=== PATIENT | male | born 1970 | race Caucasian/White ===

== ENCOUNTER 2016-08-04 15:22 | Inpatient (IN) | payer OTHER ==
[2016-08-04 16:58] VITALS: BMI 32.4
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
[2016-08-04] MEDS ORDERED: guaiFENesin/D-METHORPHAN HB 10 ML UNIT-DOSE CUPS PO PRN (17:45)
[2016-08-04] MEDS ORDERED: MAGNESIUM CITRATE 300 ML BOTTLE PO PRN (17:45)
[2016-08-04] MEDS ORDERED: MENTHOL/PHENOL 1 EACH UD MM PRN (17:45)
[2016-08-04] MEDS ORDERED: chlordiazePOXIDE HCL 25 MG CAPSULE PO PRN (17:45)
[2016-08-04] MEDS ORDERED: IBUPROFEN 400 MG TABLET (FP) PO PRN (17:45)
[2016-08-04] MEDS ORDERED: MAG HYDROX/AL HYDROX/SIMETH 30 ML UNIT-DOSE CUP PO PRN (17:45)
[2016-08-04] MEDS ORDERED: NICOTINE POLACRILEX 2 MG GUM BC PRN (17:45)
[2016-08-04] MEDS ORDERED: MAGNESIUM HYDROX 2400MG/30ML ORAL SUSPENSION 30 ML CUP PO PRN (17:45)
[2016-08-04] MEDS ORDERED: hydrOXYzine PAMOATE 50 MG CAPSULE (FP) PO PRN (17:45)
[2016-08-04] MEDS ORDERED: LOPERAMIDE HCL 2 MG CAPSULE PO PRN (17:45)
[2016-08-04] MEDS ORDERED: ACETAMINOPHEN 325 MG TABLET (FP) PO PRN (17:45)
[2016-08-04] MEDS ORDERED: P-EPHED 60MG/TRIPROLIDI 2.5MG TABLET PO PRN (17:45)
[2016-08-04] MEDS ORDERED: ONDANSETRON *ODT* 4 MG TABLET SL PRN (17:47)
[2016-08-04 22:47] LABS: URINE APPEARANCE CLEAR; URINE BILIRUBIN NEGATIVE (NEGATIVE); URINE BLOOD NEGATIVE (NEGATIVE); URINE COLOR YELLOW; URINE GLUCOSE (UA) NEGATIVE (NEGATIVE); URINE KETONE NEGATIVE (NEGATIVE); URINE LEUK ESTERASE NEGATIVE (NEGATIVE); URINE NITRITE NEGATIVE (NEGATIVE); URINE PROTEIN NEGATIVE (NEGATIVE); URINE UROBILINOGEN 2.0 E.U/dl E.U./dl (0.2-1.0)
[2016-08-04] MEDS: chlordiazePOXIDE HCL 25 MG CAPSULE PO SCH (22:59)
[2016-08-04] MEDS: THIAMINE HCL 100 MG TABLET (FP) PO SCH (22:59)
[2016-08-04] MEDS: diphenhydrAMINE HCL 50 MG CAPSULE PO PRN (23:00)
[2016-08-05] MEDS: chlordiazePOXIDE HCL 25 MG CAPSULE PO SCH ×4 (05:28→22:59)
[2016-08-05 10:09] LABS: MCH 29.3 pg (25.7-33.7); MCHC 32.7 g/dl (32.0-35.9); MEAN CELL VOLUME 89.5 fl (80-96); MEAN PLT VOLUME 11.2 fl (7.5-11.1); PLATELET COUNT 172 K/MM3 (134-434); WHITE BLOOD COUNT 7.4 K/mm3 (4.0-10.0)
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
[2016-08-05 10:23] LABS: ALBUMIN 3.3 g/dl (3.4-5.0); ANION GAP 7 (8-16); CALCIUM 8.8 mg/dL (8.5-10.1); CO2 30 mmol/L (21-32); CREATININE 0.8 mg/dL (0.7-1.3); GLUCOSE,RANDOM 113 mg/dL (74-106); SGOT/AST 13 U/L (15-37); SGPT/ALT 21 U/L (12-78)
[2016-08-05 10:25] LABS: ALK PHOS 62 U/L (45-117); BILIRUBIN,TOTAL 0.3 mg/dL (0.2-1.0); TOT PROT 6.4 g/dl (6.4-8.2)
[2016-08-05] MEDS: NICOTINE 14 MG/24 HOURS TOPICAL PATCH TD SCH (10:48)
[2016-08-05] MEDS: PRENATAL VITAMINS W/ FOLIC ACID TABLET (FP) PO SCH (10:48)
--- NOTE | 2016-08-05 11:08 | EKG ---
Test Reason : Blood Pressure : / mmHG Vent. Rate : 058 BPM Atrial Rate : 058 BPM P-R Int : 156 ms QRS Dur : 088 ms QT Int : 418 ms P-R-T Axes : 017 022 036 degrees QTc Int : 410 ms SINUS BRADYCARDIA OTHERWISE NORMAL ECG NO PREVIOUS ECGS AVAILABLE Confirmed by ROGELIO SINHA, EUGENE ([id number]) on 08/05/2016 11:07:41 AM Referred By: Jason Simon Confirmed By:EUGENE MERCADO MD
--- NOTE | 2016-08-05 11:35 | PN ---
[facility] CIWA - CIWA Score Nausea/Vomitin-No Nausea/No Vomiting Muscle Tremors: 4-Moderate,w/Arms Extend Anxiety: 4-Mod. Anxious/Guarded Agitation: 4-Moderately Restless Paroxysmal Sweats: 1-Minimal Palms Moist Orientation: 0-Oriented Tacttile Disturbances: 3-Moderate Itch/Numb/Burn Auditory Disturbances: 0-None Visual Disturbances: 0-None Headache: 0-None Present CIWA-Ar Total Score: 16 S Progress Note (SOAP) Subjective: ANXIETY,SWEATS, MUSCLE ACHES, TREMORS,IRRITABILITY, HOT/COLD CHILLS. Objective: 08/05/16 11:34 Vital Signs Temperature 97.3 F L 08/05/16 10:27 Pulse Rate 69 08/05/16 10:27 Respiratory Rate 18 08/05/16 10:27 Blood Pressure 111/81 08/05/16 10:27 O2 Sat by Pulse Oximetry (%) Laboratory Last Values WBC 7.4 K/mm3 (4.0-10.0) 08/05/16 07:14 RBC 5.07 M/mm3 (4.00-5.60) 08/05/16 07:14 Hgb 14.8 GM/dL (11.7-16.9) D 08/05/16 07:14 Hct 45.3 % (35.4-49) 08/05/16 07:14 MCV 89.5 fl (80-96) 08/05/16 07:14 MCHC 32.7 g/dl (32.0-35.9) 08/05/16 07:14 RDW 15.0 % (11.9-15.9) 08/05/16 07:14 Plt Count 172 K/MM3 (134-434) D 08/05/16 07:14 MPV 11.2 fl (7.5-11.1) H D 08/05/16 07:14 Sodium 144 mmol/L (136-145) 08/05/16 07:14 Potassium 4.1 mmol/L (3.5-5.1) 08/05/16 07:14 Chloride 107 mmol/L (98-107) 08/05/16 07:14 Carbon Dioxide 30 mmol/L (21-32) 08/05/16 07:14 Anion Gap 7 (8-16) L 08/05/16 07:14 BUN 9 mg/dL (7-18) 08/05/16 07:14 Creatinine 0.8 mg/dL (0.7-1.3) 08/05/16 07:14 Creat Clearance w eGFR > 60 (>60) 08/05/16 07:14 Random Glucose 113 mg/dL (74-106) H D 08/05/16 07:14 Calcium 8.8 mg/dL (8.5-10.1) 08/05/16 07:14 Total Bilirubin 0.3 mg/dL (0.2-1.0) 08/05/16 07:14 AST 13 U/L (15-37) L 08/05/16 07:14 ALT 21 U/L (12-78) D 08/05/16 07:14 Alkaline Phosphatase 62 U/L (45-117) 08/05/16 07:14 Total Protein 6.4 g/dl (6.4-8.2) 08/05/16 07:14 Albumin 3.3 g/dl (3.4-5.0) L 08/05/16 07:14 Urine Color Yellow 08/04/16 22:41 Urine Appearance Clear 08/04/16 22:41 Urine pH 6.0 (5.0-8.0) 08/04/16 22:41 Ur Specific [place] 1.031 (1.001-1.035) 08/04/16 22:41 Urine Protein Negative (NEGATIVE) 08/04/16 22:41 Urine Glucose (UA) Negative (NEGATIVE) 08/04/16 22:41 Urine Ketones Negative (NEGATIVE) 08/04/16 22:41 Urine Blood Negative (NEGATIVE) 08/04/16 22:41 Urine Nitrite Negative (NEGATIVE) 08/04/16 22:41 Urine Bilirubin Negative (NEGATIVE) 08/04/16 22:41 Urine Urobilinogen 2.0 e.u/dl E.U./dl (0.2-1.0) 08/04/16 22:41 Ur Leukocyte Esterase Negative (NEGATIVE) 08/04/16 22:41 Assessment: 08/05/16 11:34 WITHDRAWAL SX Plan: CONTINUE DETOX
[2016-08-05] MEDS: diphenhydrAMINE HCL 50 MG CAPSULE PO PRN (22:59)
[2016-08-05] MEDS: THIAMINE HCL 100 MG TABLET (FP) PO SCH (22:59)
[2016-08-06] MEDS: CYCLOBENZAPRINE HCL 10 MG TABLET (FP) PO PRN (05:26)
[2016-08-06] MEDS: chlordiazePOXIDE HCL 25 MG CAPSULE PO SCH ×3 (05:26→17:29)
[2016-08-06] MEDS: NICOTINE 14 MG/24 HOURS TOPICAL PATCH TD SCH (10:40)
[2016-08-06] MEDS: PRENATAL VITAMINS W/ FOLIC ACID TABLET (FP) PO SCH (10:40)
--- NOTE | 2016-08-06 11:38 | PN ---
[facility] CIWA - CIWA Score Nausea/Vomitin-No Nausea/No Vomiting Muscle Tremors: 4-Moderate,w/Arms Extend Anxiety: 4-Mod. Anxious/Guarded Agitation: 4-Moderately Restless Paroxysmal Sweats: 1-Minimal Palms Moist Orientation: 0-Oriented Tacttile Disturbances: 3-Moderate Itch/Numb/Burn Auditory Disturbances: 0-None Visual Disturbances: 0-None Headache: 0-None Present CIWA-Ar Total Score: 16 BHS Progress Note (SOAP) Subjective: ANXIETY,TREMORS, SWEATS, IRRITABILITY. Objective: 08/06/16 11:38 Vital Signs Temperature 96.4 F L 08/06/16 13:41 Pulse Rate 74 08/06/16 13:41 Respiratory Rate 20 08/06/16 13:41 Blood Pressure 123/75 08/06/16 13:41 O2 Sat by Pulse Oximetry (%) Laboratory Last Values WBC 7.4 K/mm3 (4.0-10.0) 08/05/16 07:14 RBC 5.07 M/mm3 (4.00-5.60) 08/05/16 07:14 Hgb 14.8 GM/dL (11.7-16.9) D 08/05/16 07:14 Hct 45.3 % (35.4-49) 08/05/16 07:14 MCV 89.5 fl (80-96) 08/05/16 07:14 MCHC 32.7 g/dl (32.0-35.9) 08/05/16 07:14 RDW 15.0 % (11.9-15.9) 08/05/16 07:14 Plt Count 172 K/MM3 (134-434) D 08/05/16 07:14 MPV 11.2 fl (7.5-11.1) H D 08/05/16 07:14 Sodium 144 mmol/L (136-145) 08/05/16 07:14 Potassium 4.1 mmol/L (3.5-5.1) 08/05/16 07:14 Chloride 107 mmol/L (98-107) 08/05/16 07:14 Carbon Dioxide 30 mmol/L (21-32) 08/05/16 07:14 Anion Gap 7 (8-16) L 08/05/16 07:14 BUN 9 mg/dL (7-18) 08/05/16 07:14 Creatinine 0.8 mg/dL (0.7-1.3) 08/05/16 07:14 Creat Clearance w eGFR > 60 (>60) 08/05/16 07:14 Random Glucose 113 mg/dL (74-106) H D 08/05/16 07:14 Calcium 8.8 mg/dL (8.5-10.1) 08/05/16 07:14 Total Bilirubin 0.3 mg/dL (0.2-1.0) 08/05/16 07:14 AST 13 U/L (15-37) L 08/05/16 07:14 ALT 21 U/L (12-78) D 08/05/16 07:14 Alkaline Phosphatase 62 U/L (45-117) 08/05/16 07:14 Total Protein 6.4 g/dl (6.4-8.2) 08/05/16 07:14 Albumin 3.3 g/dl (3.4-5.0) L 08/05/16 07:14 Urine Color Yellow 08/04/16 22:41 Urine Appearance Clear 08/04/16 22:41 Urine pH 6.0 (5.0-8.0) 08/04/16 22:41 Ur Specific [place] 1.031 (1.001-1.035) 08/04/16 22:41 Urine Protein Negative (NEGATIVE) 08/04/16 22:41 Urine Glucose (UA) Negative (NEGATIVE) 08/04/16 22:41 Urine Ketones Negative (NEGATIVE) 08/04/16 22:41 Urine Blood Negative (NEGATIVE) 08/04/16 22:41 Urine Nitrite Negative (NEGATIVE) 08/04/16 22:41 Urine Bilirubin Negative (NEGATIVE) 08/04/16 22:41 Urine Urobilinogen 2.0 e.u/dl E.U./dl (0.2-1.0) 08/04/16 22:41 Ur Leukocyte Esterase Negative (NEGATIVE) 08/04/16 22:41 RPR Titer Nonreactive (NONREACTIVE) 08/05/16 07:14 Assessment: 08/06/16 11:38 WITHDRAWAL SX Plan: CONTINUE DETOX
[2016-08-06] MEDS: THIAMINE HCL 100 MG TABLET (FP) PO SCH (22:50)
[2016-08-06] MEDS: diphenhydrAMINE HCL 50 MG CAPSULE PO PRN (22:51)
[2016-08-06] MEDS: chlordiazePOXIDE 5 MG CAPSULE PO SCH (22:51)
[2016-08-07] MEDS: chlordiazePOXIDE 5 MG CAPSULE PO SCH (05:18)
[2016-08-07] MEDS: CYCLOBENZAPRINE HCL 10 MG TABLET (FP) PO PRN (05:33)
[2016-08-07 06:46] VITALS: BP 117/79; PULSE 64; TEMP 96.5
--- NOTE | 2016-08-07 10:00 | DS ---
[facility] Detox Discharge Summary Admission Date: 08/04/16 Discharge Date: 08/07/16 - History Present History: Alcohol Dependence, Cannabis Dependence, Cocaine Dependence Pertinent Past History: Blind left eye - Physical Exam Results Vital Signs: Vital Signs Temperature 96.5 F L 08/07/16 06:46 Pulse Rate 64 08/07/16 06:46 Respiratory Rate 18 08/07/16 06:46 Blood Pressure 117/79 08/07/16 06:46 O2 Sat by Pulse Oximetry (%) Pertinent Admission Physical Exam Findings: Withdrawal sx. Laboratory Last Values WBC 7.4 K/mm3 (4.0-10.0) 08/05/16 07:14 RBC 5.07 M/mm3 (4.00-5.60) 08/05/16 07:14 Hgb 14.8 GM/dL (11.7-16.9) D 08/05/16 07:14 Hct 45.3 % (35.4-49) 08/05/16 07:14 MCV 89.5 fl (80-96) 08/05/16 07:14 MCHC 32.7 g/dl (32.0-35.9) 08/05/16 07:14 RDW 15.0 % (11.9-15.9) 08/05/16 07:14 Plt Count 172 K/MM3 (134-434) D 08/05/16 07:14 MPV 11.2 fl (7.5-11.1) H D 08/05/16 07:14 Sodium 144 mmol/L (136-145) 08/05/16 07:14 Potassium 4.1 mmol/L (3.5-5.1) 08/05/16 07:14 Chloride 107 mmol/L (98-107) 08/05/16 07:14 Carbon Dioxide 30 mmol/L (21-32) 08/05/16 07:14 Anion Gap 7 (8-16) L 08/05/16 07:14 BUN 9 mg/dL (7-18) 08/05/16 07:14 Creatinine 0.8 mg/dL (0.7-1.3) 08/05/16 07:14 Creat Clearance w eGFR > 60 (>60) 08/05/16 07:14 Random Glucose 113 mg/dL (74-106) H D 08/05/16 07:14 Calcium 8.8 mg/dL (8.5-10.1) 08/05/16 07:14 Total Bilirubin 0.3 mg/dL (0.2-1.0) 08/05/16 07:14 AST 13 U/L (15-37) L 08/05/16 07:14 ALT 21 U/L (12-78) D 08/05/16 07:14 Alkaline Phosphatase 62 U/L (45-117) 08/05/16 07:14 Total Protein 6.4 g/dl (6.4-8.2) 08/05/16 07:14 Albumin 3.3 g/dl (3.4-5.0) L 08/05/16 07:14 Urine Color Yellow 08/04/16 22:41 Urine Appearance Clear 08/04/16 22:41 Urine pH 6.0 (5.0-8.0) 08/04/16 22:41 Ur Specific [place] 1.031 (1.001-1.035) 08/04/16 22:41 Urine Protein Negative (NEGATIVE) 08/04/16 22:41 Urine Glucose (UA) Negative (NEGATIVE) 08/04/16 22:41 Urine Ketones Negative (NEGATIVE) 08/04/16 22:41 Urine Blood Negative (NEGATIVE) 08/04/16 22:41 Urine Nitrite Negative (NEGATIVE) 08/04/16 22:41 Urine Bilirubin Negative (NEGATIVE) 08/04/16 22:41 Urine Urobilinogen 2.0 e.u/dl E.U./dl (0.2-1.0) 08/04/16 22:41 Ur Leukocyte Esterase Negative (NEGATIVE) 08/04/16 22:41 RPR Titer Nonreactive (NONREACTIVE) 08/05/16 07:14 labs noted - Treatment Patient has Accepted a Rehab Referral to: [facility] meetings - Medication Discharge Medications: Ambulatory Orders Trazodone HCl [Desyrel -] 100 mg PO HS #30 tablet 01/02/15 - Diagnosis (1) Alcohol dependence with uncomplicated withdrawal Status: Acute (2) Cannabis dependence Status: Acute (3) Cocaine dependence Status: Acute (4) Nicotine dependence Status: Acute Qualifiers: Nicotine product type: cigarettes Substance use status: in withdrawal Qualified Code(s): F17.213 - Nicotine dependence, cigarettes, with withdrawal (5) Substance induced mood disorder Status: Acute - AMA Did Patient Leave Against Medical Advice: Yes
[2016-08-07] MEDS ORDERED: chlordiazePOXIDE HCL 10 MG CAPSULE PO SCH (23:00)
== END 2016-08-07 07:38 | disposition left against medical advice (07) | DRG 770 ==
LOC: YASAS 15:22 → Y3N 18:20
PROVIDERS: ADMIT Internal Medicine; ATTEND Internal Medicine
PROC: HZ2ZZZZ Detoxification Services for Substance Abuse Treatment (ICD-10-PCS; principal; 2016-08-07)
DX: F10.230 Alcohol dependence with withdrawal, uncomplicated (principal); F14.20 Cocaine dependence, uncomplicated; F12.20 Cannabis dependence, uncomplicated; F17.213 Nicotine dependence, cigarettes, with withdrawal; F19.24 Other psychoactive substance dependence with psychoactive substance-induced mood disorder; H54.42 Blindness, left eye, normal vision right eye; R11.10 Vomiting, unspecified
CPT/HCPCS: 36415; 80053; 81003; 85027; 86593; 93005; 93010

== ENCOUNTER 2017-02-03 11:25 | Inpatient (IN) | payer OTHER ==
[2017-02-03 12:56] VITALS: BMI 33.3
[2017-02-03] MEDS ORDERED: P-EPHED 60MG/TRIPROLIDI 2.5MG TABLET PO PRN (16:40)
[2017-02-03] MEDS ORDERED: NICOTINE POLACRILEX 2 MG GUM BC PRN (16:40)
[2017-02-03] MEDS ORDERED: MAGNESIUM HYDROX 2400MG/30ML ORAL SUSPENSION 30 ML CUP PO PRN (16:40)
[2017-02-03] MEDS ORDERED: diphenhydrAMINE HCL 50 MG CAPSULE PO PRN (16:40)
[2017-02-03] MEDS ORDERED: ACETAMINOPHEN 325 MG TABLET (FP) PO PRN (16:40)
[2017-02-03] MEDS ORDERED: guaiFENesin/D-METHORPHAN HB 10 ML UNIT-DOSE CUPS PO PRN (16:40)
[2017-02-03] MEDS ORDERED: IBUPROFEN 400 MG TABLET (FP) PO PRN (16:40)
[2017-02-03] MEDS ORDERED: LOPERAMIDE HCL 2 MG CAPSULE PO PRN (16:40)
[2017-02-03] MEDS ORDERED: MAG HYDROX/AL HYDROX/SIMETH 30 ML UNIT-DOSE CUP PO PRN (16:40)
[2017-02-03] MEDS ORDERED: MAGNESIUM CITRATE 300 ML BOTTLE PO PRN (16:40)
[2017-02-03] MEDS ORDERED: MENTHOL/PHENOL 1 EACH UD MM PRN (16:40)
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
[2017-02-03] MEDS ORDERED: diazePAM 5 MG TABLET PO ONE (17:00)
[2017-02-03] MEDS ORDERED: METHADONE HCL 10 MG TABLET (FOR DETOX USE ONLY) PO ONE ×2 (17:15→23:00)
[2017-02-03] MEDS: NICOTINE 7 MG/24 HOURS TOPICAL PATCH TD SCH (17:34)
[2017-02-03 21:23] LABS: URINE APPEARANCE CLEAR; URINE BILIRUBIN NEGATIVE (NEGATIVE); URINE BLOOD NEGATIVE (NEGATIVE); URINE COLOR YELLOW; URINE GLUCOSE (UA) NEGATIVE (NEGATIVE); URINE KETONE TRACE (NEGATIVE); URINE LEUK ESTERASE NEGATIVE (NEGATIVE); URINE NITRITE NEGATIVE (NEGATIVE); URINE PROTEIN NEGATIVE (NEGATIVE); URINE UROBILINOGEN NEGATIVE mg/dL (0.2-1.0)
[2017-02-03] MEDS: diazePAM 5 MG TABLET PO SCH (22:32)
[2017-02-03] MEDS: THIAMINE HCL 100 MG TABLET (FP) PO SCH (22:33)
[2017-02-04] MEDS: diazePAM 5 MG TABLET PO SCH ×3 (06:04→22:27)
[2017-02-04] MEDS ORDERED: METHADONE HCL 10 MG TABLET (FOR DETOX USE ONLY) PO SCH (10:00)
[2017-02-04] MEDS: PRENATAL VITAMINS W/ FOLIC ACID TABLET (FP) PO SCH (10:07)
[2017-02-04] MEDS: diazePAM 5 MG TABLET PO PRN ×2 (10:07→13:54)
[2017-02-04] MEDS: NICOTINE 7 MG/24 HOURS TOPICAL PATCH TD SCH (10:08)
[2017-02-04 10:20] LABS: MCH 29.8 pg (25.7-33.7); MCHC 32.8 g/dl (32.0-35.9); MEAN CELL VOLUME 90.9 fl (80-96); MEAN PLT VOLUME 9.8 fl (7.5-11.1); PLATELET COUNT 234 K/MM3 (134-434); WHITE BLOOD COUNT 7.4 K/mm3 (4.0-10.0)
[2017-02-04 10:46] LABS: ALK PHOS 68 U/L (45-117); ANION GAP 5 (8-16); BILIRUBIN,TOTAL 0.3 mg/dL (0.2-1.0); CALCIUM 8.6 mg/dL (8.5-10.1); CO2 29 mmol/L (21-32); CREATININE 0.7 mg/dL (0.7-1.3); GLUCOSE,RANDOM 91 mg/dL (74-106); SGOT/AST 18 U/L (15-37); SGPT/ALT 38 U/L (12-78)
[2017-02-04 11:28] LABS: HIV 1 & 2 AB NEGATIVE; HIV 1 AGp24 NEGATIVE
[2017-02-04] MEDS ORDERED: FLU VACCINE QUAD 60 MCG/0.5 ML (MDV 17-18) IM ONE (12:00)
--- NOTE | 2017-02-04 12:06 | PN ---
[facility] CIWA - CIWA Score Nausea/Vomitin-No Nausea/No Vomiting Muscle Tremors: 4-Moderate,w/Arms Extend Anxiety: 4-Mod. Anxious/Guarded Agitation: 4-Moderately Restless Paroxysmal Sweats: 3 Orientation: 0-Oriented Tacttile Disturbances: 0-None Auditory Disturbances: 0-None Visual Disturbances: 0-None Headache: 0-None Present CIWA-Ar Total Score: 15 S COWS - Scale Resting Pulse: 1= HI 81-100 Sweatin=Flushed/Facial Moisture Restless Observation: 1= Difficult to Sit Still Pupil Size: 0= Normal to Room Light Bone or Joint Aches: 2= Severe Diffuse Aches Runny Nose/ Eye Tearin= Nasal Congestion GI Upset > 30mins: 1= Stomach Cramp Tremor Observation of Outstretched Hands: 2= Slight Tremor Visible Yawning Observation: 2= >3x During Session Anxiety or Irritability: 2=Irritable/Anxious Goose Flesh Skin: 3=Piloerection COWS Score: 17 S Progress Note (SOAP) Subjective: irritable body aches chills sweats shakes interrupted sleep nausea Objective: 02/04/17 12:05 Vital Signs Temperature 98.1 F 02/04/17 09:50 Pulse Rate 84 02/04/17 09:50 Respiratory Rate 20 02/04/17 09:50 Blood Pressure 112/69 02/04/17 09:50 O2 Sat by Pulse Oximetry (%) Laboratory Tests 02/03/17 02/04/17 02/04/17 20:50 07:30 07:30 WBC 7.4 RBC 4.42 Hgb 13.2 D Hct 40.2 MCV 90.9 MCH 29.8 MCHC 32.8 RDW 15.0 Plt Count 234 D MPV 9.8 D Sodium Potassium Chloride Carbon Dioxide Anion Gap BUN Creatinine Creat Clearance w eGFR Random Glucose Calcium Total Bilirubin AST ALT Alkaline Phosphatase Total Protein Albumin Urine Color Yellow Urine Appearance Clear Urine pH 6.0 Ur Specific [place] 1.020 Urine Protein Negative Urine Glucose (UA) Negative Urine Ketones Trace H Urine Blood Negative Urine Nitrite Negative Urine Bilirubin Negative Urine Urobilinogen Negative RPR Titer HIV 1&2 Antibody Screen Negative HIV P24 Antigen Negative 02/04/17 02/04/17 07:30 07:30 WBC RBC Hgb Hct MCV MCH MCHC RDW Plt Count MPV Sodium 142 Potassium 4.5 Chloride 108 H Carbon Dioxide 29 Anion Gap 5 L BUN 14 D Creatinine 0.7 Creat Clearance w eGFR > 60 Random Glucose 91 Calcium 8.6 Total Bilirubin 0.3 AST 18 D ALT 38 D Alkaline Phosphatase 68 Total Protein 6.0 L Albumin 3.0 L Urine Color Urine Appearance Urine pH Ur Specific [place] Urine Protein Urine Glucose (UA) Urine Ketones Urine Blood Urine Nitrite Urine Bilirubin Urine Urobilinogen RPR Titer Nonreactive HIV 1&2 Antibody Screen HIV P24 Antigen aaox3 lying in bed no acute distress Assessment: 02/04/17 12:06 withdrawal sx Plan: continue detox increase fluids tigan po prn naproxyen 500mg bid
[2017-02-04] MEDS: hydrOXYzine PAMOATE 50 MG CAPSULE (FP) PO PRN (12:07)
--- NOTE | 2017-02-04 12:11 | CONSULT ---
[facility] Psychiatric Consult - Data Date of interview: 02/04/17 Admission source: [facility] Identifying data: This is 46 years old male with no psychiatric hospitalization history intoxicated with: Alcohol, Opioids, Xanax, Nicotine Substance Abuse History: - Smoking Cessation. Smoking history: Current every day smoker. Have you smoked in the past 12 months: Yes. Aproximately how many cigarettes per day: 2. Cigars Per Day: 10. Hx Chewing Tobacco Use: No. Initiated information on smoking cessation: Yes. 'Breaking Loose' booklet given : 02/03/17. - Substance & Tx. History. Hx Alcohol Use: Yes. Hx Substance Use : Yes. Substance Use Type: Alcohol, Heroin, Tranquilizers. Hx Substance Use Treatment: Yes (detox & rehab last July 2016). - Substances Abused. Heroin. Route: Injection. Frequency: Daily. Amount used: 7 bags. Age of first use: 29. Date of Last Use: 02/02/17. Klonopin. Route: Oral. Frequency: Daily. Amount used: 6-8 mg. Age of first use: 39. Date of Last Use : 02/02/17. Alcohol-vodka. Route: Oral. Frequency: 3-6 times per week. Amount used: 3 pts. Age of first use: 11. Date of Last Use: 02/02/17 Medical History: Syncope history, Seizure history, MMTO, Left eye blindness Psychiatric History: Patioent reprots history of depression and anxiety, reports taking prior to admission: Trazodone 100mg po qhs Physical/Sexual Abuse/Trauma History: Denies Additional Comment: Trazodone 100mg po qhs Mental Status Exam - Mental Status Exam Alert and Oriented to: Person Cognitive Function: Fair Patient Appearance: Unkempt Mood: Sad Patient Behavior: Sedated Speech Pattern: Delayed Voice Loudness: Mildly Soft/Quiet Thought Process: Circumstantial Thought Disorder: Being Controlled Hallucinations: Denies Suicidal Ideation: Denies Homicidal Ideation: Denies Insight/Judgement: Fair Sleep: Difficulty falling asleep Appetite: Fair Muscle strength/Tone: Mild Hypotonicity Gait/Station: Shuffling Additional Comments: Trazodone 100mg po qhs Psychiatric Findings - Problem List ([place] 1, 2,3) (1) Alcohol dependence with uncomplicated withdrawal Current Visit: Yes Status: Chronic (2) Opioid dependence with withdrawal Current Visit: Yes Status: Chronic (3) Sedative, hypnotic or anxiolytic dependence with withdrawal, uncomplicated Current Visit: Yes Status: Chronic (4) Cannabis dependence Current Visit: No Status: Chronic (5) Cocaine dependence Current Visit: No Status: Chronic (6) Nicotine dependence Current Visit: No Status: Chronic Qualifiers: Nicotine product type: cigarettes Substance use status: uncomplicated Qualified Code(s): F17.210 - Nicotine dependence, cigarettes, uncomplicated (7) Drug-induced mood disorder Current Visit: Yes Status: Acute - Initial Treatment Plan Initial Treatment Plan: Trazodone 100mg po qhs
[2017-02-04] MEDS ORDERED: NAPROXEN 500 MG TABLET (FP) PO ONE (12:18)
--- NOTE | 2017-02-04 16:01 | EKG ---
Test Reason : Blood Pressure : / mmHG Vent. Rate : 079 BPM Atrial Rate : 079 BPM P-R Int : 138 ms QRS Dur : 090 ms QT Int : 394 ms P-R-T Axes : 013 015 041 degrees QTc Int : 451 ms POOR DATA QUALITY, INTERPRETATION MAY BE ADVERSELY AFFECTED NORMAL SINUS RHYTHM NORMAL ECG WHEN COMPARED WITH ECG OF 04-AUG-2016 18:14, NO SIGNIFICANT CHANGE WAS FOUND Confirmed by GARTH SINHA, YURIY ([id number]) on 02/04/2017 4:01:18 PM Referred By: Jason Simon Confirmed By:YURIY LIANG MD
[2017-02-04] MEDS: NAPROXEN 500 MG TABLET (FP) PO SCH (22:27)
[2017-02-04] MEDS: traZODone HCL 100 MG TABLET (FP) PO SCH (22:27)
[2017-02-04] MEDS: THIAMINE HCL 100 MG TABLET (FP) PO SCH (22:28)
--- NOTE | 2017-02-05 10:02 | PN ---
S CIWA - CIWA Score Nausea/Vomitin Muscle Tremors: 4-Moderate,w/Arms Extend Anxiety: 4-Mod. Anxious/Guarded Agitation: 4-Moderately Restless Orientation: 0-Oriented Tacttile Disturbances: 0-None Auditory Disturbances: 0-None Visual Disturbances: 0-None Headache: 0-None Present S COWS - Scale Resting Pulse: 0= OR 80 or Below Sweatin= Chills/Flushing Restless Observation: 1= Difficult to Sit Still Pupil Size: 1= Pupils >than Normal Bone or Joint Aches: 1= Mild Discomfort Runny Nose/ Eye Tearin= Nasal Congestion GI Upset > 30mins: 2= Nausea/Diarrhea Tremor Observation of Outstretched Hands: 2= Slight Tremor Visible Yawning Observation: 1= 1-2x During Session Anxiety or Irritability: 2=Irritable/Anxious Goose Flesh Skin: 3=Piloerection COWS Score: 15 S Progress Note (SOAP) Subjective: nausea, sweats, interrupted sleep, anxiety, tremors Objective: 02/05/17 10:01 Vital Signs - 24 hr 02/04/17 02/04/17 02/04/17 13:37 17:08 21:34 Temperature 98.1 F 97.9 F 97.9 F Pulse Rate 69 63 62 Respiratory 18 20 18 Rate Blood Pressure 113/67 92/62 114/75 02/05/17 02/05/17 02/05/17 00:30 03:30 07:11 Temperature 97.2 F L Pulse Rate 57 L Respiratory 18 18 18 Rate Blood Pressure 103/64 Laboratory Tests 02/03/17 02/04/17 02/04/17 20:50 07:30 07:30 WBC 7.4 RBC 4.42 Hgb 13.2 D Hct 40.2 MCV 90.9 MCH 29.8 MCHC 32.8 RDW 15.0 Plt Count 234 D MPV 9.8 D Sodium Potassium Chloride Carbon Dioxide Anion Gap BUN Creatinine Creat Clearance w eGFR Random Glucose Calcium Total Bilirubin AST ALT Alkaline Phosphatase Total Protein Albumin Urine Color Yellow Urine Appearance Clear Urine pH 6.0 Ur Specific [place] 1.020 Urine Protein Negative Urine Glucose (UA) Negative Urine Ketones Trace H Urine Blood Negative Urine Nitrite Negative Urine Bilirubin Negative Urine Urobilinogen Negative RPR Titer HIV 1&2 Antibody Screen Negative HIV P24 Antigen Negative 02/04/17 02/04/17 07:30 07:30 WBC RBC Hgb Hct MCV MCH MCHC RDW Plt Count MPV Sodium 142 Potassium 4.5 Chloride 108 H Carbon Dioxide 29 Anion Gap 5 L BUN 14 D Creatinine 0.7 Creat Clearance w eGFR > 60 Random Glucose 91 Calcium 8.6 Total Bilirubin 0.3 AST 18 D ALT 38 D Alkaline Phosphatase 68 Total Protein 6.0 L Albumin 3.0 L Urine Color Urine Appearance Urine pH Ur Specific [place] Urine Protein Urine Glucose (UA) Urine Ketones Urine Blood Urine Nitrite Urine Bilirubin Urine Urobilinogen RPR Titer Nonreactive HIV 1&2 Antibody Screen HIV P24 Antigen Assessment: 02/05/17 10:02 withdrawal sx Plan: cont detox, fluids, encrouage ambualtion
[2017-02-05] MEDS: diazePAM 5 MG TABLET PO SCH ×2 (10:15→22:11)
[2017-02-05] MEDS: PANTOPRAZOLE 40 MG TABLET (FP) PO SCH (10:15)
[2017-02-05] MEDS: PRENATAL VITAMINS W/ FOLIC ACID TABLET (FP) PO SCH (10:15)
[2017-02-05] MEDS: cloNIDine HCL 0.1 MG TABLET PO SCH ×2 (10:15→22:11)
[2017-02-05] MEDS: NICOTINE 7 MG/24 HOURS TOPICAL PATCH TD SCH (10:15)
[2017-02-05] MEDS: NAPROXEN 500 MG TABLET (FP) PO SCH ×2 (10:15→22:11)
[2017-02-05] MEDS: hydrOXYzine PAMOATE 50 MG CAPSULE (FP) PO PRN (10:15)
[2017-02-05] MEDS: METHADONE HCL 5 MG TABLET (FOR DETOX USE ONLY) PO SCH (10:15)
[2017-02-05] MEDS: GABAPENTIN 100 MG CAPSULE (FP) PO SCH ×2 (14:04→22:11)
[2017-02-05] MEDS: THIAMINE HCL 100 MG TABLET (FP) PO SCH (22:11)
[2017-02-05] MEDS: traZODone HCL 100 MG TABLET (FP) PO SCH (22:11)
[2017-02-06] MEDS: diazePAM 5 MG TABLET PO PRN ×3 (05:38→14:27)
[2017-02-06] MEDS: GABAPENTIN 100 MG CAPSULE (FP) PO SCH ×3 (05:38→22:03)
[2017-02-06] MEDS: PRENATAL VITAMINS W/ FOLIC ACID TABLET (FP) PO SCH (10:14)
[2017-02-06] MEDS: PANTOPRAZOLE 40 MG TABLET (FP) PO SCH (10:14)
[2017-02-06] MEDS: NAPROXEN 500 MG TABLET (FP) PO SCH ×2 (10:14→22:03)
[2017-02-06] MEDS: diazePAM 5 MG TABLET PO SCH ×2 (10:14→22:02)
[2017-02-06] MEDS: cloNIDine HCL 0.1 MG TABLET PO SCH ×2 (10:14→22:03)
[2017-02-06] MEDS: METHADONE HCL 5 MG TABLET (FOR DETOX USE ONLY) PO SCH (10:15)
[2017-02-06] MEDS: NICOTINE 7 MG/24 HOURS TOPICAL PATCH TD SCH (10:16)
--- NOTE | 2017-02-06 13:41 | PN ---
[facility] Progress Note (SOAP) Subjective: alert,irritable,anxious,interrupted sleep,treor,pain in the body and back, interrupted sleep Objective: 02/06/17 13:40 Vital Signs Temperature 97.5 F L 02/06/17 11:06 Pulse Rate 71 02/06/17 11:06 Respiratory Rate 19 02/06/17 11:06 Blood Pressure 116/76 02/06/17 11:06 O2 Sat by Pulse Oximetry (%) Assessment: 02/06/17 13:40 withdrawal symptom Plan: continue detox
[2017-02-06] MEDS: THIAMINE HCL 100 MG TABLET (FP) PO SCH (22:02)
[2017-02-06] MEDS: ZOLPIDEM TARTRATE 10 MG TABLET (PARK CARE ONLY) PO PRN (22:02)
[2017-02-06] MEDS: traZODone HCL 100 MG TABLET (FP) PO SCH (22:03)
[2017-02-07] MEDS: GABAPENTIN 100 MG CAPSULE (FP) PO SCH ×3 (06:26→22:01)
[2017-02-07] MEDS ORDERED: diazePAM 5 MG TABLET PO SCH (10:00)
[2017-02-07] MEDS ORDERED: METHADONE HCL 10 MG TABLET (FOR DETOX USE ONLY) PO SCH (10:00)
--- NOTE | 2017-02-07 10:04 | PN ---
S Progress Note (SOAP) Subjective: ALERT,IRRITABLE,ANXIOUS,INTERRUPTED SLEEP, Objective: 02/07/17 10:03 Vital Signs Temperature 98.2 F 02/07/17 09:57 Pulse Rate 71 02/07/17 09:57 Respiratory Rate 16 02/07/17 09:57 Blood Pressure 124/77 02/07/17 09:57 O2 Sat by Pulse Oximetry (%) Assessment: 02/07/17 10:04 WITHDRAWAL SYMPTOM Plan: CONTINUE DETOX,DISCHARGE IN AM
[2017-02-07] MEDS: PANTOPRAZOLE 40 MG TABLET (FP) PO SCH (10:45)
[2017-02-07] MEDS: PRENATAL VITAMINS W/ FOLIC ACID TABLET (FP) PO SCH (10:45)
[2017-02-07] MEDS: cloNIDine HCL 0.1 MG TABLET PO SCH ×2 (10:45→22:00)
[2017-02-07] MEDS: NICOTINE 7 MG/24 HOURS TOPICAL PATCH TD SCH (10:46)
[2017-02-07] MEDS: NAPROXEN 500 MG TABLET (FP) PO SCH ×2 (10:46→22:00)
[2017-02-07] MEDS: ZOLPIDEM TARTRATE 10 MG TABLET (PARK CARE ONLY) PO PRN (22:00)
[2017-02-07] MEDS: traZODone HCL 100 MG TABLET (FP) PO SCH (22:00)
[2017-02-07] MEDS: THIAMINE HCL 100 MG TABLET (FP) PO SCH (22:01)
[2017-02-08] MEDS: GABAPENTIN 100 MG CAPSULE (FP) PO SCH (05:29)
[2017-02-08] MEDS ORDERED: METHADONE HCL 5 MG TABLET (FOR DETOX USE ONLY) PO SCH (06:00)
[2017-02-08 06:02] VITALS: BP 134/83; PULSE 51; TEMP 97.5
--- NOTE | 2017-02-08 08:56 | DS ---
[facility] Detox Discharge Summary Admission Date: 02/03/17 Discharge Date: 02/08/17 - History Present History: Alcohol Dependence, Cannabis Dependence, Cocaine Dependence, Opioid Dependence, Sedative Dependence - Physical Exam Results Vital Signs: Vital Signs Temperature 97.5 F L 02/08/17 06:02 Pulse Rate 51 L 02/08/17 06:02 Respiratory Rate 18 02/08/17 06:02 Blood Pressure 134/83 02/08/17 06:02 O2 Sat by Pulse Oximetry (%) - Treatment Hospital Course: Detox Protocol Followed, Detoxed Safely, Responded well, Discharged Condition Good, Rehab Referral Accepted - Medication Discharge Medications: Ambulatory Orders Trazodone HCl [Desyrel -] 100 mg PO HS #30 tablet 01/02/15 Trazodone HCl [Desyrel -] 100 mg PO HS #30 tablet 02/04/17 - Diagnosis (1) Alcohol dependence with uncomplicated withdrawal Current Visit: Yes Status: Chronic (2) Opioid dependence with withdrawal Current Visit: Yes Status: Chronic (3) Sedative, hypnotic or anxiolytic dependence with withdrawal, uncomplicated Current Visit: Yes Status: Chronic (4) Nicotine dependence Current Visit: No Status: Chronic Qualifiers: Nicotine product type: cigarettes Substance use status: uncomplicated Qualified Code(s): F17.210 - Nicotine dependence, cigarettes, uncomplicated - AMA Did Patient Leave Against Medical Advice: No
[2017-02-08] MEDS: PRENATAL VITAMINS W/ FOLIC ACID TABLET (FP) PO SCH (09:30)
[2017-02-08] MEDS: cloNIDine HCL 0.1 MG TABLET PO SCH (09:30)
[2017-02-08] MEDS: NICOTINE 7 MG/24 HOURS TOPICAL PATCH TD SCH (09:30)
[2017-02-08] MEDS: PANTOPRAZOLE 40 MG TABLET (FP) PO SCH (09:30)
[2017-02-08] MEDS: NAPROXEN 500 MG TABLET (FP) PO SCH (09:30)
== END 2017-02-08 09:35 | disposition home or self-care (01) | DRG 773 ==
LOC: YASAS 11:25 → Y6N 16:32
PROVIDERS: ADMIT Internal Medicine; ATTEND Internal Medicine
PROC: HZ2ZZZZ Detoxification Services for Substance Abuse Treatment (ICD-10-PCS; principal; 2017-02-03)
DX: F11.23 Opioid dependence with withdrawal (principal); F13.230 Sedative, hypnotic or anxiolytic dependence with withdrawal, uncomplicated; F10.230 Alcohol dependence with withdrawal, uncomplicated; F14.20 Cocaine dependence, uncomplicated; F17.210 Nicotine dependence, cigarettes, uncomplicated; F19.24 Other psychoactive substance dependence with psychoactive substance-induced mood disorder; H54.42 Blindness, left eye, normal vision right eye; Z86.69 Personal history of other diseases of the nervous system and sense organs; Z86.79 Personal history of other diseases of the circulatory system
CPT/HCPCS: 36415; 80053; 81003; 85027; 86593; 87389; 90688; 93005; 93010; G0008

== ENCOUNTER 2019-02-27 14:54 | Inpatient (IN) | payer OTHER ==
[2019-02-27 15:33] VITALS: BMI 38.2
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
--- NOTE | 2019-02-27 17:50 | PN ---
Teaching Attending Note Name of Resident: Reid Patterson ATTENDING PHYSICIAN STATEMENT I saw and evaluated the patient. I reviewed the resident's note and discussed the case with the resident. I agree with the resident's findings and plan as documented. SUBJECTIVE: 48 yo with OUD- on suboxone, here for alcohol use- pt states has not used since yesterday. Is in withdrawal. Also on K2. OBJECTIVE: Vital Signs - 24 hr 02/27/19 15:28 Temperature 98.1 F Pulse Rate 58 L Respiratory 16 Rate Blood Pressure 100/56 L withdrawal SX ASSESSMENT AND PLAN: Alcohol use disorder- librium detox protocol OUD- Suboxone- pt is currently getting this 4mg qd
[2019-02-27] MEDS ORDERED: IBUPROFEN 400 MG TABLET (FP) PO PRN (17:52)
[2019-02-27] MEDS ORDERED: BISMUTH SUBSALICYLATE 524 MG/30 ML UD PO PRN (17:52)
[2019-02-27] MEDS ORDERED: MAG HYDROX/AL HYDROX/SIMETH 30 ML UNIT-DOSE CUP PO PRN (17:52)
[2019-02-27] MEDS ORDERED: MELATONIN 5 MG TABLETS PO PRN (17:52)
[2019-02-27] MEDS ORDERED: MAGNESIUM HYDROX 2400MG/30ML ORAL SUSPENSION 30 ML CUP PO PRN (17:52)
[2019-02-27] MEDS ORDERED: MENTHOL/PHENOL 1 EACH UD MM PRN (17:52)
[2019-02-27] MEDS ORDERED: hydrOXYzine PAMOATE 25 MG CAPSULE (FP) PO PRN (17:52)
[2019-02-27] MEDS ORDERED: MAGNESIUM CITRATE 300 ML BOTTLE PO PRN (17:52)
[2019-02-27] MEDS ORDERED: ACETAMINOPHEN 325 MG TABLET (FP) PO PRN ×2 (17:52)
[2019-02-27] MEDS ORDERED: ALBUTEROL SO4 8 GM HFA INHALER IH PRN (18:01)
[2019-02-27] MEDS: chlordiazePOXIDE HCL 25 MG CAPSULE PO PRN (18:35)
[2019-02-27] MEDS: METHOCARBAMOL 500 MG TABLET PO PRN (18:39)
[2019-02-27] MEDS: chlordiazePOXIDE HCL 25 MG CAPSULE PO SCH (22:09)
[2019-02-27] MEDS: THIAMINE HCL 100 MG TABLET (FP) PO SCH (22:10)
[2019-02-28] MEDS: chlordiazePOXIDE HCL 25 MG CAPSULE PO SCH ×4 (05:05→22:08)
[2019-02-28 09:37] LABS: HEMATOCRIT 45.2 % (35.4-49); HEMOGLOBIN 14.9 GM/dL (11.7-16.9); MCH 29.4 pg (25.7-33.7); MCHC 32.8 g/dl (32.0-35.9); MEAN CELL VOLUME 89.5 fl (80-96); MEAN PLT VOLUME 10.1 fl (7.5-11.1); PLATELET COUNT 276 K/MM3 (134-434); RBC 5.05 M/mm3 (4.00-5.60); RDW 15.5 % (11.9-15.9); WHITE BLOOD COUNT 7.3 K/mm3 (4.0-10.0)
[2019-02-28 09:53] LABS: ALBUMIN 3.8 g/dl (3.4-5.0); BILIRUBIN,TOTAL 0.6 mg/dL (0.2-1); BLOOD UREA NITROGEN 12.7 mg/dL (7-18); CALCIUM 8.8 mg/dL (8.5-10.1); CREATININE 0.8 mg/dL (0.55-1.3); POTASSIUM 4.4 mmol/L (3.5-5.1); TOT PROT 7.4 g/dl (6.4-8.2)
[2019-02-28] MEDS: BUPRENORPHINE/NALOXONE 4 MG/1 MG FILM PACKET SL SCH (10:13)
[2019-02-28] MEDS: PRENATAL VITAMINS W/ FOLIC ACID TABLET (FP) PO SCH (10:15)
[2019-02-28] MEDS: NICOTINE 14 MG/24 HOURS TOPICAL PATCH TD SCH (10:15)
[2019-02-28] MEDS ORDERED: BUPRENORPHINE/NALOXONE 2 MG/0.5 MG FILM PACKET SL SCH (11:00)
--- NOTE | 2019-02-28 11:04 | PN ---
[facility] CIWA - CIWA Score Nausea/Vomitin Muscle Tremors: 2 Anxiety: 2 Agitation: 3 Paroxysmal Sweats: 2 Orientation: 0-Oriented Tacttile Disturbances: 2-Mild Itch/Numbness/Burn Auditory Disturbances: 0-None Visual Disturbances: 0-None Headache: 0-None Present CIWA-Ar Total Score: 13 B[facility] Progress Note (SOAP) Subjective: interrupted sleep, sweats, shakes , irritated about being frequently awakened. Objective: 02/28/19 11:02 Vital Signs Temperature 97.9 F 02/27/19 21:18 Pulse Rate 57 L 02/28/19 09:12 Respiratory Rate 16 02/28/19 09:12 Blood Pressure 119/76 02/28/19 09:12 O2 Sat by Pulse Oximetry (%) Laboratory Tests 02/28/19 02/28/19 07:50 07:50 WBC 7.3 RBC 5.05 Hgb 14.9 Hct 45.2 MCV 89.5 MCH 29.4 MCHC 32.8 RDW 15.5 Plt Count 276 MPV 10.1 Sodium 139 Potassium 4.4 Chloride 106 Carbon Dioxide 27 Anion Gap 7 L BUN 12.7 Creatinine 0.8 Est GFR (CKD-EPI)AfAm 121.57 Est GFR (CKD-EPI)NonAf 104.89 Random Glucose 95 Calcium 8.8 Total Bilirubin 0.6 AST 14 L ALT 27 Alkaline Phosphatase 86 Total Protein 7.4 Albumin 3.8 pt lying on stomach in bed in nad but irritable. Assessment: 02/28/19 11:04 withdrawal sx's MAT with Buprenorphine 02/28/19 11:05 Plan: cont. detox increase fluids
[2019-02-28] MEDS: chlordiazePOXIDE HCL 25 MG CAPSULE PO PRN (11:45)
[2019-02-28] MEDS: METHOCARBAMOL 500 MG TABLET PO PRN ×2 (11:46→22:10)
[2019-02-28] MEDS: THIAMINE HCL 100 MG TABLET (FP) PO SCH (22:08)
[2019-03-01] MEDS: chlordiazePOXIDE HCL 25 MG CAPSULE PO SCH ×4 (06:13→22:05)
[2019-03-01] MEDS: BUPRENORPHINE/NALOXONE 4 MG/1 MG FILM PACKET SL SCH (10:43)
[2019-03-01] MEDS: PRENATAL VITAMINS W/ FOLIC ACID TABLET (FP) PO SCH (10:43)
[2019-03-01] MEDS: NICOTINE 14 MG/24 HOURS TOPICAL PATCH TD SCH (10:44)
--- NOTE | 2019-03-01 12:27 | PN ---
S CIWA - CIWA Score Nausea/Vomitin Muscle Tremors: 2 Anxiety: 2 Agitation: 2 Paroxysmal Sweats: No Perspiration Orientation: 0-Oriented Tacttile Disturbances: 1-Very Mild Itch/Numbness Auditory Disturbances: 0-None Visual Disturbances: 0-None Headache: 1-Very Mild CIWA-Ar Total Score: 10 BHS Progress Note (SOAP) Subjective: c/o of chills, sweats, body aches, irritable Objective: 03/01/19 12:25 Vital Signs Temperature 97.9 F 03/01/19 09:48 Pulse Rate 76 03/01/19 09:48 Respiratory Rate 18 03/01/19 09:48 Blood Pressure 121/90 03/01/19 09:48 O2 Sat by Pulse Oximetry (%) Laboratory Last Values WBC 7.3 K/mm3 (4.0-10.0) 02/28/19 07:50 RBC 5.05 M/mm3 (4.00-5.60) 02/28/19 07:50 Hgb 14.9 GM/dL (11.7-16.9) 02/28/19 07:50 Hct 45.2 % (35.4-49) 02/28/19 07:50 MCV 89.5 fl (80-96) 02/28/19 07:50 MCH 29.4 pg (25.7-33.7) 02/28/19 07:50 MCHC 32.8 g/dl (32.0-35.9) 02/28/19 07:50 RDW 15.5 % (11.9-15.9) 02/28/19 07:50 Plt Count 276 K/MM3 (134-434) 02/28/19 07:50 MPV 10.1 fl (7.5-11.1) 02/28/19 07:50 Sodium 139 mmol/L (136-145) 02/28/19 07:50 Potassium 4.4 mmol/L (3.5-5.1) 02/28/19 07:50 Chloride 106 mmol/L (98-107) 02/28/19 07:50 Carbon Dioxide 27 mmol/L (21-32) 02/28/19 07:50 Anion Gap 7 MMOL/L (8-16) L 02/28/19 07:50 BUN 12.7 mg/dL (7-18) 02/28/19 07:50 Creatinine 0.8 mg/dL (0.55-1.3) 02/28/19 07:50 Est GFR (CKD-EPI)AfAm 121.57 02/28/19 07:50 Est GFR (CKD-EPI)NonAf 104.89 02/28/19 07:50 Random Glucose 95 mg/dL (74-106) 02/28/19 07:50 Calcium 8.8 mg/dL (8.5-10.1) 02/28/19 07:50 Total Bilirubin 0.6 mg/dL (0.2-1) 02/28/19 07:50 AST 14 U/L (15-37) L 02/28/19 07:50 ALT 27 U/L (13-61) 02/28/19 07:50 Alkaline Phosphatase 86 U/L (45-117) 02/28/19 07:50 Total Protein 7.4 g/dl (6.4-8.2) 02/28/19 07:50 Albumin 3.8 g/dl (3.4-5.0) 02/28/19 07:50 RPR Titer Nonreactive (NONREACTIVE) 02/28/19 07:50 labs reviewed Assessment: 03/01/19 12:25 Aox3 no acute distress, irritable no adventitious breath sounds full ROM ambulating in the unit withdrawal sx Plan: increase fluids continue detox continue to monitor
[2019-03-01] MEDS: METHOCARBAMOL 500 MG TABLET PO PRN ×2 (13:19→18:41)
[2019-03-01] MEDS: chlordiazePOXIDE HCL 25 MG CAPSULE PO PRN (13:19)
[2019-03-01] MEDS: THIAMINE HCL 100 MG TABLET (FP) PO SCH (21:19)
[2019-03-02] MEDS ORDERED: chlordiazePOXIDE HCL 10 MG CAPSULE PO PRN
[2019-03-02] MEDS: chlordiazePOXIDE HCL 10 MG CAPSULE PO SCH ×4 (07:37→23:50)
--- NOTE | 2019-03-02 09:39 | PN ---
S CIWA - CIWA Score Nausea/Vomitin Muscle Tremors: 2 Anxiety: 2 Agitation: 0-Normal Activity Paroxysmal Sweats: 2 Orientation: 0-Oriented Tacttile Disturbances: 1-Very Mild Itch/Numbness Auditory Disturbances: 0-None Visual Disturbances: 2-Mild Sensitivity Headache: 0-None Present CIWA-Ar Total Score: 12 S Progress Note (SOAP) Subjective: c/o of nausea, interrupted sleep, body aches, chills Objective: 03/02/19 09:38 Vital Signs Temperature 99.1 F 03/01/19 20:42 Pulse Rate 63 03/01/19 20:42 Respiratory Rate 18 03/02/19 03:30 Blood Pressure 112/68 03/01/19 20:42 O2 Sat by Pulse Oximetry (%) Laboratory Last Values WBC 7.3 K/mm3 (4.0-10.0) 02/28/19 07:50 RBC 5.05 M/mm3 (4.00-5.60) 02/28/19 07:50 Hgb 14.9 GM/dL (11.7-16.9) 02/28/19 07:50 Hct 45.2 % (35.4-49) 02/28/19 07:50 MCV 89.5 fl (80-96) 02/28/19 07:50 MCH 29.4 pg (25.7-33.7) 02/28/19 07:50 MCHC 32.8 g/dl (32.0-35.9) 02/28/19 07:50 RDW 15.5 % (11.9-15.9) 02/28/19 07:50 Plt Count 276 K/MM3 (134-434) 02/28/19 07:50 MPV 10.1 fl (7.5-11.1) 02/28/19 07:50 Sodium 139 mmol/L (136-145) 02/28/19 07:50 Potassium 4.4 mmol/L (3.5-5.1) 02/28/19 07:50 Chloride 106 mmol/L (98-107) 02/28/19 07:50 Carbon Dioxide 27 mmol/L (21-32) 02/28/19 07:50 Anion Gap 7 MMOL/L (8-16) L 02/28/19 07:50 BUN 12.7 mg/dL (7-18) 02/28/19 07:50 Creatinine 0.8 mg/dL (0.55-1.3) 02/28/19 07:50 Est GFR (CKD-EPI)AfAm 121.57 02/28/19 07:50 Est GFR (CKD-EPI)NonAf 104.89 02/28/19 07:50 Random Glucose 95 mg/dL (74-106) 02/28/19 07:50 Calcium 8.8 mg/dL (8.5-10.1) 02/28/19 07:50 Total Bilirubin 0.6 mg/dL (0.2-1) 02/28/19 07:50 AST 14 U/L (15-37) L 02/28/19 07:50 ALT 27 U/L (13-61) 02/28/19 07:50 Alkaline Phosphatase 86 U/L (45-117) 02/28/19 07:50 Total Protein 7.4 g/dl (6.4-8.2) 02/28/19 07:50 Albumin 3.8 g/dl (3.4-5.0) 02/28/19 07:50 RPR Titer Nonreactive (NONREACTIVE) 02/28/19 07:50 Assessment: 03/02/19 09:38 Aox3 no acute distress EENT WNL Patient resting comfortably in bed and active participant during assessment Plan: increase fluids continue detox continue to monitor
[2019-03-02] MEDS: PRENATAL VITAMINS W/ FOLIC ACID TABLET (FP) PO SCH (10:21)
[2019-03-02] MEDS: BUPRENORPHINE/NALOXONE 4 MG/1 MG FILM PACKET SL SCH (10:22)
[2019-03-02] MEDS: NICOTINE 14 MG/24 HOURS TOPICAL PATCH TD SCH (10:22)
[2019-03-02] MEDS: METHOCARBAMOL 500 MG TABLET PO PRN (18:03)
[2019-03-02] MEDS: THIAMINE HCL 100 MG TABLET (FP) PO SCH (23:50)
[2019-03-03] MEDS ORDERED: chlordiazePOXIDE HCL 10 MG CAPSULE PO SCH (05:00)
--- NOTE | 2019-03-03 09:55 | DS ---
[facility] Detox Discharge Summary Admission Date: 02/27/19 Discharge Date: 03/03/19 - History Present History: Cannabis Dependence, Cocaine Dependence, Sedative Dependence - Physical Exam Results Vital Signs: Vital Signs Temperature 98.1 F 03/03/19 09:13 Pulse Rate 87 03/03/19 09:13 Respiratory Rate 20 03/03/19 09:13 Blood Pressure 93/63 03/03/19 09:13 O2 Sat by Pulse Oximetry (%) Pertinent Admission Physical Exam Findings: pt arrived in withdrawals Laboratory Tests 02/28/19 02/28/19 02/28/19 07:50 07:50 07:50 WBC 7.3 RBC 5.05 Hgb 14.9 Hct 45.2 MCV 89.5 MCH 29.4 MCHC 32.8 RDW 15.5 Plt Count 276 MPV 10.1 Sodium 139 Potassium 4.4 Chloride 106 Carbon Dioxide 27 Anion Gap 7 L BUN 12.7 Creatinine 0.8 Est GFR (CKD-EPI)AfAm 121.57 Est GFR (CKD-EPI)NonAf 104.89 Random Glucose 95 Calcium 8.8 Total Bilirubin 0.6 AST 14 L ALT 27 Alkaline Phosphatase 86 Total Protein 7.4 Albumin 3.8 RPR Titer Nonreactive today pt is aaox3 ambulating no acute distress no s/s of withdrawals - Treatment Hospital Course: Detox Protocol Followed, Detoxed Safely, Responded well, Discharged Condition Good, Rehab Referral Accepted Patient has Accepted a Rehab Referral to: pt referred to [facility] - Medication Discharge Medications: Ambulatory Orders Buprenorphine HCl/Naloxone HCl [Bupreno-Nalox 2-0.5 mg Sl Film] 4 mg PO HS 02/27 - Diagnosis (1) Opioid dependence on agonist therapy Current Visit: Yes Status: Acute (2) Anxiety disorder Current Visit: No Status: Acute (3) Drug-induced mood disorder Current Visit: No Status: Acute (4) Alcohol dependence with uncomplicated withdrawal Current Visit: Yes Status: Chronic (5) Cannabis dependence Current Visit: Yes Status: Chronic (6) Cocaine dependence Current Visit: Yes Status: Chronic (7) Nicotine dependence Current Visit: Yes Status: Chronic Qualifiers: Nicotine product type: cigarettes Substance use status: uncomplicated Qualified Code(s): F17.210 - Nicotine dependence, cigarettes, uncomplicated (8) Opioid dependence with withdrawal Current Visit: Yes Status: Chronic (9) Sedative, hypnotic or anxiolytic dependence with withdrawal, uncomplicated Current Visit: Yes Status: Chronic (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
[2019-03-03] MEDS: PRENATAL VITAMINS W/ FOLIC ACID TABLET (FP) PO SCH (10:27)
[2019-03-03] MEDS: NICOTINE 14 MG/24 HOURS TOPICAL PATCH TD SCH (10:27)
[2019-03-03] MEDS: BUPRENORPHINE/NALOXONE 4 MG/1 MG FILM PACKET SL SCH (10:27)
[2019-03-03] MEDS: METHOCARBAMOL 500 MG TABLET PO PRN (12:38)
[2019-03-03 13:36] VITALS: BP 114/78; PULSE 88; TEMP 98.3
[2019-03-04] MEDS ORDERED: chlordiazePOXIDE HCL 10 MG CAPSULE PO ONE (05:00)
== END 2019-03-03 13:35 | disposition other institution (70) | DRG 773 ==
LOC: YASAS 14:54 → Y6N 18:12
PROVIDERS: ADMIT Allergy & Immunology; ATTEND Allergy & Immunology
PROC: HZ2ZZZZ Detoxification Services for Substance Abuse Treatment (ICD-10-PCS; principal; 2019-02-27)
DX: F10.230 Alcohol dependence with withdrawal, uncomplicated (principal); F11.20 Opioid dependence, uncomplicated; F13.230 Sedative, hypnotic or anxiolytic dependence with withdrawal, uncomplicated; F14.20 Cocaine dependence, uncomplicated; F12.20 Cannabis dependence, uncomplicated; F17.210 Nicotine dependence, cigarettes, uncomplicated; F19.24 Other psychoactive substance dependence with psychoactive substance-induced mood disorder; F41.9 Anxiety disorder, unspecified; H54.62 Unqualified visual loss, left eye, normal vision right eye; Z87.828 Personal history of other (healed) physical injury and trauma; Z91.013 Allergy to seafood
CPT/HCPCS: 36415; 80053; 85027; 86593

== ENCOUNTER 2019-03-03 14:00 | Inpatient (IN) | payer OTHER ==
[2019-03-03] MEDS ORDERED: guaiFENesin 200 MG/10 ML 10 ML UNIT-DOSE CUPS PO PRN (15:15)
[2019-03-03] MEDS ORDERED: MENTHOL/PHENOL 1 EACH UD MM PRN (15:15)
[2019-03-03] MEDS ORDERED: MAGNESIUM CITRATE 300 ML BOTTLE PO PRN (15:15)
[2019-03-03] MEDS ORDERED: ACETAMINOPHEN 325 MG TABLET (FP) PO PRN (15:15)
[2019-03-03] MEDS ORDERED: P-EPHED 60MG/TRIPROLIDI 2.5MG TABLET PO PRN (15:15)
[2019-03-03] MEDS ORDERED: MAG HYDROX/AL HYDROX/SIMETH 30 ML UNIT-DOSE CUP PO PRN (15:15)
[2019-03-03] MEDS ORDERED: MAGNESIUM HYDROX 2400MG/30ML ORAL SUSPENSION 30 ML CUP PO PRN (15:15)
[2019-03-03] MEDS ORDERED: NICOTINE POLACRILEX 4 MG GUM BUC PRN (15:15)
--- NOTE | 2019-03-03 15:15 | HP ---
[facility] Rehab Assess/Revision - Admission History Ad[facility] to Rehab [facility] - Findings Detox History & Physical reviewed: Yes Concur with findings: Yes Inpatient Rehab Admission - Rehab Decision to Admit Inpatient rehab admission?: Yes - Initial Determination Are CD services needed?: Yes Free of communicable disease: Yes Not in need of hospitalization: Yes - Rehab Admission Criteria Previous failed treatment: Yes Poor recovery environment: Yes Comorbidities: Yes Lacks judgement: Yes Patient is meeting Inpatient Rehab admission criteria:: Yes
[2019-03-03] MEDS: THIAMINE HCL 100 MG TABLET (FP) PO SCH (21:52)
[2019-03-04] MEDS: NICOTINE 21 MG/24 HOURS TOPICAL PATCH TD SCH (09:52)
[2019-03-04] MEDS: PRENATAL VITAMINS W/ FOLIC ACID TABLET (FP) PO SCH (09:52)
[2019-03-04] MEDS: BUPRENORPHINE/NALOXONE 4 MG/1 MG FILM PACKET SL SCH (09:52)
[2019-03-04] MEDS: hydrOXYzine PAMOATE 50 MG CAPSULE (FP) PO PRN ×2 (12:48→17:21)
[2019-03-04] MEDS: THIAMINE HCL 100 MG TABLET (FP) PO SCH (21:24)
[2019-03-05] MEDS: hydrOXYzine PAMOATE 50 MG CAPSULE (FP) PO PRN ×3 (06:58→16:23)
[2019-03-05] MEDS: BUPRENORPHINE/NALOXONE 4 MG/1 MG FILM PACKET SL SCH (09:22)
[2019-03-05] MEDS: NICOTINE 21 MG/24 HOURS TOPICAL PATCH TD SCH (09:22)
[2019-03-05] MEDS: PRENATAL VITAMINS W/ FOLIC ACID TABLET (FP) PO SCH (09:22)
[2019-03-05] MEDS: IBUPROFEN 400 MG TABLET (FP) PO PRN (11:04)
[2019-03-05] MEDS: LOPERAMIDE HCL 2 MG CAPSULE PO PRN (19:38)
[2019-03-05] MEDS: THIAMINE HCL 100 MG TABLET (FP) PO SCH (21:47)
[2019-03-06] MEDS: PRENATAL VITAMINS W/ FOLIC ACID TABLET (FP) PO SCH (09:58)
[2019-03-06] MEDS: BUPRENORPHINE/NALOXONE 4 MG/1 MG FILM PACKET SL SCH (10:00)
[2019-03-06] MEDS: NICOTINE 21 MG/24 HOURS TOPICAL PATCH TD SCH (10:00)
--- NOTE | 2019-03-06 11:13 | PN ---
S Progress Note Note: Patient seen for c/o anxiety, shakes and sweating. Patient completed detox here at [facility] for etoh/bzo dependence. Patient states BZO dependence was more of a problem for him although he cannot remember how much he would take. Patient does not want MAT for etoh dependence, only symptomatic treatment at this time. Vital Signs Temperature 98 F 03/06/19 07:07 Pulse Rate 56 L 03/06/19 07:07 Respiratory Rate 18 03/06/19 07:07 Blood Pressure 103/64 03/06/19 07:07 O2 Sat by Pulse Oximetry (%) PE: alert and oriented x 3 skin warm, + mild facial moisture +perrla, eoms intact bl gi nt, nd ext full rom, +mild tremors amb ad genet A/P: protracted withdrawal syndrome will start gabapentin 100mg tid encourage oral fluids monitor clinically
[2019-03-06] MEDS: GABAPENTIN 100 MG CAPSULE (FP) PO SCH ×2 (15:03→21:46)
[2019-03-06] MEDS: hydrOXYzine PAMOATE 50 MG CAPSULE (FP) PO PRN (15:06)
[2019-03-06] MEDS: THIAMINE HCL 100 MG TABLET (FP) PO SCH (21:57)
[2019-03-07] MEDS: GABAPENTIN 100 MG CAPSULE (FP) PO SCH ×3 (06:13→21:40)
[2019-03-07] MEDS: hydrOXYzine PAMOATE 50 MG CAPSULE (FP) PO PRN ×2 (10:18→14:18)
[2019-03-07] MEDS: BUPRENORPHINE/NALOXONE 4 MG/1 MG FILM PACKET SL SCH (10:18)
[2019-03-07] MEDS: NICOTINE 21 MG/24 HOURS TOPICAL PATCH TD SCH (10:18)
[2019-03-07] MEDS: PRENATAL VITAMINS W/ FOLIC ACID TABLET (FP) PO SCH (10:19)
[2019-03-07] MEDS: IBUPROFEN 400 MG TABLET (FP) PO PRN (11:18)
[2019-03-07] MEDS: CYCLOBENZAPRINE HCL 5 MG TABLET PO SCH ×2 (14:18→21:40)
[2019-03-07] MEDS: THIAMINE HCL 100 MG TABLET (FP) PO SCH (21:40)
[2019-03-08] MEDS: GABAPENTIN 100 MG CAPSULE (FP) PO SCH ×4 (06:43→21:44)
[2019-03-08] MEDS: CYCLOBENZAPRINE HCL 5 MG TABLET PO SCH ×2 (06:43→07:29)
[2019-03-08] MEDS: PRENATAL VITAMINS W/ FOLIC ACID TABLET (FP) PO SCH (10:28)
[2019-03-08] MEDS: NICOTINE 21 MG/24 HOURS TOPICAL PATCH TD SCH (10:28)
[2019-03-08] MEDS: BUPRENORPHINE/NALOXONE 4 MG/1 MG FILM PACKET SL SCH (10:28)
[2019-03-08] MEDS: hydrOXYzine PAMOATE 50 MG CAPSULE (FP) PO PRN (10:29)
--- NOTE | 2019-03-08 11:58 | PN ---
[facility] Progress Note (SOAP) Subjective: Patient states he feels like he is still "detoxing from benzos." He has taken the vistaril and the flexeril, but now also has stomach discomfort. Objective: P/E; General: appears anxious HEENTM: PERRLA Lungs: clear Heart: s1 s2 Abd: +BS, Neuro: 2-12 intact, no neurological deficits noted. 03/08/19 11:56 Assessment: withdrawal from benzos 03/08/19 11:57 Plan: Increased flexeril to 10 mg, advised patient to take mylanta for stomach discomfort. Added protonix. Will continue to monitor.
[2019-03-08] MEDS ORDERED: BUPRENORPHINE/NALOXONE 4 MG/1 MG FILM PACKET SL SCH (12:45)
[2019-03-08] MEDS: CYCLOBENZAPRINE HCL 10 MG TABLET (FP) PO SCH ×2 (14:24→21:44)
[2019-03-08] MEDS: PANTOPRAZOLE 40 MG TABLET (FP) PO SCH (14:24)
[2019-03-08] MEDS: THIAMINE HCL 100 MG TABLET (FP) PO SCH (21:44)
[2019-03-09] MEDS: CYCLOBENZAPRINE HCL 10 MG TABLET (FP) PO SCH ×3 (06:50→21:41)
[2019-03-09] MEDS: GABAPENTIN 100 MG CAPSULE (FP) PO SCH ×3 (06:50→21:41)
[2019-03-09] MEDS: NICOTINE 21 MG/24 HOURS TOPICAL PATCH TD SCH (09:35)
[2019-03-09] MEDS: PRENATAL VITAMINS W/ FOLIC ACID TABLET (FP) PO SCH (09:35)
[2019-03-09] MEDS: PANTOPRAZOLE 40 MG TABLET (FP) PO SCH (09:35)
[2019-03-09] MEDS: BUPRENORPHINE/NALOXONE 4 MG/1 MG FILM PACKET SL SCH (09:35)
[2019-03-09] MEDS: hydrOXYzine PAMOATE 50 MG CAPSULE (FP) PO PRN ×2 (09:35→14:06)
[2019-03-09] MEDS: IBUPROFEN 400 MG TABLET (FP) PO PRN (11:01)
--- NOTE | 2019-03-09 12:16 | PN ---
[facility] Progress Note (SOAP) Subjective: Patient continues to have withdrawal symptoms. Yesterday, he was given muscle relaxant and protonix for his muscle aches and stomach distress. Was encouraged to take mylanta as needed. Today, he continues to have symptoms of generalized body aches and pains. Does not want to increase his suboxone and missed his dose of gabapentin last night. Patient states that he was not given and medications last night and the MAR indicates that he refused medication. Objective: General: appears anxious HEENTM: many missing teeth, normocepahlic Lungs: clear Heart: s1 s2 Abd: +BS Neuro: cn 2-12 intact 03/09/19 12:14 Assessment: Withdrawal from ETOH 03/09/19 12:16 Plan: Increased gabapentin to 200mg TID. Advised patient to take all his medications as prescribed and ask for the PRNs, which were reviewed. Also advised patient to take melatonin at night for sleep.
[2019-03-09] MEDS: LOPERAMIDE HCL 2 MG CAPSULE PO PRN (14:06)
[2019-03-09] MEDS: THIAMINE HCL 100 MG TABLET (FP) PO SCH (21:40)
[2019-03-09] MEDS: MELATONIN 5 MG TABLETS PO PRN (21:42)
[2019-03-10] MEDS: GABAPENTIN 100 MG CAPSULE (FP) PO SCH ×3 (07:14→21:11)
[2019-03-10] MEDS: CYCLOBENZAPRINE HCL 10 MG TABLET (FP) PO SCH ×3 (07:14→21:11)
[2019-03-10] MEDS: NICOTINE 21 MG/24 HOURS TOPICAL PATCH TD SCH (10:01)
[2019-03-10] MEDS: PRENATAL VITAMINS W/ FOLIC ACID TABLET (FP) PO SCH (10:01)
[2019-03-10] MEDS: PANTOPRAZOLE 40 MG TABLET (FP) PO SCH (10:02)
[2019-03-10] MEDS: BUPRENORPHINE/NALOXONE 4 MG/1 MG FILM PACKET SL SCH (10:02)
[2019-03-10] MEDS: hydrOXYzine PAMOATE 50 MG CAPSULE (FP) PO PRN ×2 (11:29→17:27)
[2019-03-10] MEDS: THIAMINE HCL 100 MG TABLET (FP) PO SCH (21:10)
[2019-03-11] MEDS: GABAPENTIN 100 MG CAPSULE (FP) PO SCH ×3 (06:34→21:58)
[2019-03-11] MEDS: CYCLOBENZAPRINE HCL 10 MG TABLET (FP) PO SCH ×3 (06:34→21:58)
[2019-03-11] MEDS: PANTOPRAZOLE 40 MG TABLET (FP) PO SCH (09:44)
[2019-03-11] MEDS: BUPRENORPHINE/NALOXONE 4 MG/1 MG FILM PACKET SL SCH (09:44)
[2019-03-11] MEDS: hydrOXYzine PAMOATE 50 MG CAPSULE (FP) PO PRN ×2 (09:44→14:22)
[2019-03-11] MEDS: PRENATAL VITAMINS W/ FOLIC ACID TABLET (FP) PO SCH (09:44)
[2019-03-11] MEDS: NICOTINE 21 MG/24 HOURS TOPICAL PATCH TD SCH (09:44)
[2019-03-11] MEDS: IBUPROFEN 400 MG TABLET (FP) PO PRN (09:44)
[2019-03-11] MEDS: THIAMINE HCL 100 MG TABLET (FP) PO SCH (21:58)
[2019-03-11] MEDS: MELATONIN 5 MG TABLETS PO PRN (21:59)
[2019-03-12] MEDS: GABAPENTIN 100 MG CAPSULE (FP) PO SCH ×3 (06:00→21:29)
[2019-03-12] MEDS: CYCLOBENZAPRINE HCL 10 MG TABLET (FP) PO SCH ×3 (06:00→21:29)
[2019-03-12] MEDS: PRENATAL VITAMINS W/ FOLIC ACID TABLET (FP) PO SCH (09:43)
[2019-03-12] MEDS: NICOTINE 21 MG/24 HOURS TOPICAL PATCH TD SCH (09:43)
[2019-03-12] MEDS: BUPRENORPHINE/NALOXONE 4 MG/1 MG FILM PACKET SL SCH (09:43)
[2019-03-12] MEDS: hydrOXYzine PAMOATE 50 MG CAPSULE (FP) PO PRN ×3 (09:43→21:30)
[2019-03-12] MEDS: PANTOPRAZOLE 40 MG TABLET (FP) PO SCH (09:43)
[2019-03-12] MEDS: MELATONIN 5 MG TABLETS PO PRN (21:29)
[2019-03-12] MEDS: THIAMINE HCL 100 MG TABLET (FP) PO SCH (21:29)
[2019-03-13] MEDS: CYCLOBENZAPRINE HCL 10 MG TABLET (FP) PO SCH ×3 (06:21→21:16)
[2019-03-13] MEDS: GABAPENTIN 100 MG CAPSULE (FP) PO SCH ×3 (06:21→21:16)
[2019-03-13] MEDS: PANTOPRAZOLE 40 MG TABLET (FP) PO SCH (10:45)
[2019-03-13] MEDS: PRENATAL VITAMINS W/ FOLIC ACID TABLET (FP) PO SCH (10:45)
[2019-03-13] MEDS: NICOTINE 21 MG/24 HOURS TOPICAL PATCH TD SCH (10:45)
[2019-03-13] MEDS: BUPRENORPHINE/NALOXONE 4 MG/1 MG FILM PACKET SL SCH (10:46)
[2019-03-13] MEDS: THIAMINE HCL 100 MG TABLET (FP) PO SCH (21:16)
[2019-03-13] MEDS: MELATONIN 5 MG TABLETS PO PRN (21:16)
[2019-03-14] MEDS: GABAPENTIN 100 MG CAPSULE (FP) PO SCH ×3 (06:26→21:29)
[2019-03-14] MEDS: CYCLOBENZAPRINE HCL 10 MG TABLET (FP) PO SCH ×3 (06:26→21:29)
[2019-03-14] MEDS: NICOTINE 21 MG/24 HOURS TOPICAL PATCH TD SCH (09:20)
[2019-03-14] MEDS: hydrOXYzine PAMOATE 50 MG CAPSULE (FP) PO PRN ×2 (09:21→21:29)
[2019-03-14] MEDS: PANTOPRAZOLE 40 MG TABLET (FP) PO SCH (09:21)
[2019-03-14] MEDS: PRENATAL VITAMINS W/ FOLIC ACID TABLET (FP) PO SCH (09:21)
[2019-03-14] MEDS: BUPRENORPHINE/NALOXONE 4 MG/1 MG FILM PACKET SL SCH (09:21)
[2019-03-14] MEDS ORDERED: BUPRENORPHINE/NALOXONE 4 MG/1 MG FILM PACKET SL SCH (10:27)
[2019-03-14] MEDS: MELATONIN 5 MG TABLETS PO PRN (21:29)
[2019-03-14] MEDS: THIAMINE HCL 100 MG TABLET (FP) PO SCH (21:29)
[2019-03-15] MEDS: CYCLOBENZAPRINE HCL 10 MG TABLET (FP) PO SCH ×3 (05:59→21:19)
[2019-03-15] MEDS: GABAPENTIN 100 MG CAPSULE (FP) PO SCH ×3 (05:59→21:19)
[2019-03-15] MEDS: PANTOPRAZOLE 40 MG TABLET (FP) PO SCH (09:36)
[2019-03-15] MEDS: BUPRENORPHINE/NALOXONE 4 MG/1 MG FILM PACKET SL SCH (09:36)
[2019-03-15] MEDS: PRENATAL VITAMINS W/ FOLIC ACID TABLET (FP) PO SCH (09:36)
[2019-03-15] MEDS: NICOTINE 21 MG/24 HOURS TOPICAL PATCH TD SCH (09:37)
[2019-03-15] MEDS: hydrOXYzine PAMOATE 50 MG CAPSULE (FP) PO PRN ×2 (09:37→21:19)
[2019-03-15] MEDS: MELATONIN 5 MG TABLETS PO PRN (21:19)
[2019-03-15] MEDS: THIAMINE HCL 100 MG TABLET (FP) PO SCH (21:19)
[2019-03-16] MEDS: CYCLOBENZAPRINE HCL 10 MG TABLET (FP) PO SCH ×3 (06:24→21:30)
[2019-03-16] MEDS: GABAPENTIN 100 MG CAPSULE (FP) PO SCH ×3 (06:24→21:30)
[2019-03-16 06:54] VITALS: TEMP 97.8
[2019-03-16] MEDS: PANTOPRAZOLE 40 MG TABLET (FP) PO SCH (09:43)
[2019-03-16] MEDS: BUPRENORPHINE/NALOXONE 4 MG/1 MG FILM PACKET SL SCH (09:43)
[2019-03-16] MEDS: PRENATAL VITAMINS W/ FOLIC ACID TABLET (FP) PO SCH (09:43)
[2019-03-16] MEDS: hydrOXYzine PAMOATE 50 MG CAPSULE (FP) PO PRN (09:45)
[2019-03-16] MEDS: NICOTINE 21 MG/24 HOURS TOPICAL PATCH TD SCH (09:46)
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
[2019-03-16] MEDS: MELATONIN 5 MG TABLETS PO PRN (21:30)
[2019-03-16] MEDS: THIAMINE HCL 100 MG TABLET (FP) PO SCH (21:30)
[2019-03-17] MEDS: GABAPENTIN 100 MG CAPSULE (FP) PO SCH (06:07)
[2019-03-17] MEDS: CYCLOBENZAPRINE HCL 10 MG TABLET (FP) PO SCH (06:08)
[2019-03-17 06:57] VITALS: BP 123/83; PULSE 68
== END 2019-03-17 07:00 | disposition home or self-care (01) | DRG 772 ==
LOC: YASAS 14:00 → Y3W 14:05
PROVIDERS: ADMIT Neuromusculoskeletal Medicine & OMM; ATTEND Neuromusculoskeletal Medicine & OMM
PROC: HZ42ZZZ Group Counseling for Substance Abuse Treatment, Cognitive-Behavioral (ICD-10-PCS; principal; 2019-03-03)
DX: F10.20 Alcohol dependence, uncomplicated (principal); F13.20 Sedative, hypnotic or anxiolytic dependence, uncomplicated; F12.20 Cannabis dependence, uncomplicated; F17.210 Nicotine dependence, cigarettes, uncomplicated; H54.62 Unqualified visual loss, left eye, normal vision right eye; Z91.013 Allergy to seafood

== ENCOUNTER 2019-06-15 18:04 | Inpatient (IN) | payer OTHER ==
[2019-06-15 18:59] VITALS: BMI 39.7
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
[2019-06-15] MEDS ORDERED: ONDANSETRON *ODT* 4 MG TABLET SL PRN (20:57)
[2019-06-15] MEDS ORDERED: NICOTINE POLACRILEX 2 MG GUM BUC PRN (20:57)
[2019-06-15] MEDS ORDERED: guaiFENesin 200 MG/10 ML 10 ML UNIT-DOSE CUPS PO PRN (20:57)
[2019-06-15] MEDS ORDERED: DICYCLOMINE HCL 10 MG CAPSULE PO PRN (20:57)
[2019-06-15] MEDS ORDERED: IBUPROFEN 400 MG TABLET (FP) PO PRN (20:57)
[2019-06-15] MEDS ORDERED: MENTHOL/PHENOL 1 EACH UD MM PRN (20:57)
[2019-06-15] MEDS ORDERED: MAGNESIUM CITRATE 300 ML BOTTLE PO PRN (20:57)
[2019-06-15] MEDS ORDERED: P-EPHED 60MG/TRIPROLIDI 2.5MG TABLET PO PRN (20:57)
[2019-06-15] MEDS ORDERED: hydrOXYzine PAMOATE 25 MG CAPSULE (FP) PO PRN (20:57)
[2019-06-15] MEDS ORDERED: ACETAMINOPHEN 325 MG TABLET (FP) PO PRN ×2 (20:57)
[2019-06-15] MEDS ORDERED: MAGNESIUM HYDROX 2400MG/30ML ORAL SUSPENSION 30 ML CUP PO PRN (20:57)
[2019-06-15] MEDS ORDERED: MAG HYDROX/AL HYDROX/SIMETH 30 ML UNIT-DOSE CUP PO PRN (20:57)
[2019-06-15] MEDS: THIAMINE HCL 100 MG TABLET (FP) PO SCH (22:10)
[2019-06-15] MEDS: diazePAM 5 MG TABLET PO SCH (22:10)
[2019-06-15] MEDS: METHOCARBAMOL 500 MG TABLET PO PRN (22:11)
[2019-06-15] MEDS: MELATONIN 5 MG TABLETS PO PRN (22:11)
[2019-06-16] MEDS: diazePAM 5 MG TABLET PO SCH ×3 (05:20→22:00)
[2019-06-16] MEDS: METHOCARBAMOL 500 MG TABLET PO PRN ×3 (05:22→19:09)
[2019-06-16] MEDS: PRENATAL VITAMINS W/ FOLIC ACID TABLET (FP) PO SCH (10:04)
[2019-06-16] MEDS: diazePAM 5 MG TABLET PO PRN ×2 (10:05→16:41)
[2019-06-16] MEDS: NICOTINE 14 MG/24 HOURS TOPICAL PATCH TD SCH (10:05)
--- NOTE | 2019-06-16 11:29 | PN ---
S CIWA - CIWA Score Nausea/Vomitin Muscle Tremors: 2 Anxiety: 3 Agitation: 1-Slight > Activity Paroxysmal Sweats: 1-Minimal Palms Moist Orientation: 0-Oriented Tacttile Disturbances: 0-None Auditory Disturbances: 0-None Visual Disturbances: 2-Mild Sensitivity Headache: 2-Mild CIWA-Ar Total Score: 14 S Progress Note (SOAP) Subjective: Mr. Rubalcava complains of diarrhea, body aches, feels shakey, headache, anxious and light sensitive. Objective: 06/16/19 11:28 Vital Signs Temperature 97.6 F 06/16/19 08:30 Pulse Rate 80 06/16/19 08:30 Respiratory Rate 16 06/16/19 08:30 Blood Pressure 96/62 06/16/19 08:30 O2 Sat by Pulse Oximetry (%) Gnl: WDWN, in mild distress Mental status: awake, alert, oriented, nl language function Motor: moves 4 limbs symmetrically Skin: moist Assessment: 06/16/19 11:30 1. Alcohol withdrawal, uncomplicated 06/16/19 11:32 2. Benzodiazepine use disorder 06/16/19 11:33 3. Nicotine dependence Plan: 1. continue alcohol withdrawal protocol, Valium 2. routine labs pending
--- NOTE | 2019-06-16 11:50 | CONSULT ---
[facility] Psychiatric Consult - Data Date of interview: 06/16/19 Admission source: [facility] Identifying data: Patient is approached at bedside for the requested psychiatric evaluation. Mr Rubalcava refused. " I am taking my rest. leave me alone. I don't need to talk to psychiatrists." Nursing staff is made aware.
[2019-06-16] MEDS: BISMUTH SUBSALICYLATE 524 MG/30 ML UD PO PRN ×4 (13:26→19:08)
[2019-06-16 16:59] LABS: HEMATOCRIT 41.1 % (35.4-49); HEMOGLOBIN 13.2 GM/dL (11.7-16.9); MCHC 32.2 g/dl (32.0-35.9); MEAN CELL VOLUME 90.1 fl (80-96); MEAN PLT VOLUME 10.2 fl (7.5-11.1); PLATELET COUNT 250 K/MM3 (134-434); RBC 4.56 M/mm3 (4.00-5.60); RDW 15.9 % (11.9-15.9); WHITE BLOOD COUNT 7.4 K/mm3 (4.0-10.0)
[2019-06-16 17:07] LABS: ALBUMIN 3.3 g/dl (3.4-5.0); BILIRUBIN,TOTAL 0.9 mg/dL (0.2-1); BLOOD UREA NITROGEN 12.9 mg/dL (7-18); CALCIUM 8.1 mg/dL (8.5-10.1); CREATININE 0.7 mg/dL (0.55-1.3); POTASSIUM 4.4 mmol/L (3.5-5.1); TOT PROT 6.6 g/dl (6.4-8.2)
[2019-06-16 18:23] LABS: EPI CELLS 2.4 /HPF (0-5/HPF); HYALINE CASTS 39 /lpf (0-8); PH,URINE 7.5 (5.0-8.0); URINE APPEARANCE CLEAR; URINE BACTERIA 14.3 /hpf (NEGATIVE); URINE BILIRUBIN NEGATIVE (NEGATIVE); URINE COLOR DK YELLOW; URINE GLUCOSE (UA) NEGATIVE (NEGATIVE); URINE KETONE TRACE (NEGATIVE); URINE LEUK ESTERASE NEGATIVE (NEGATIVE); URINE NITRITE NEGATIVE (NEGATIVE); URINE PROTEIN 1+ (NEGATIVE); URINE RBC 1 /hpf (0-4); URINE WBC 2 /hpf (0-5)
[2019-06-16] MEDS: THIAMINE HCL 100 MG TABLET (FP) PO SCH (21:59)
[2019-06-16] MEDS: MELATONIN 5 MG TABLETS PO PRN (22:00)
[2019-06-17] MEDS: diazePAM 5 MG TABLET PO PRN ×2 (04:14→11:59)
[2019-06-17] MEDS: diazePAM 5 MG TABLET PO SCH ×2 (06:23→17:38)
[2019-06-17] MEDS: METHOCARBAMOL 500 MG TABLET PO PRN ×2 (10:25→20:08)
[2019-06-17] MEDS: PRENATAL VITAMINS W/ FOLIC ACID TABLET (FP) PO SCH (10:26)
[2019-06-17] MEDS: NICOTINE 14 MG/24 HOURS TOPICAL PATCH TD SCH (10:27)
--- NOTE | 2019-06-17 10:54 | PN ---
S CIWA - CIWA Score Nausea/Vomitin-No Nausea/No Vomiting Muscle Tremors: None Anxiety: 3 Agitation: 0-Normal Activity Paroxysmal Sweats: 3 Orientation: 0-Oriented Tacttile Disturbances: 0-None Auditory Disturbances: 0-None Visual Disturbances: 0-None Headache: 2-Mild CIWA-Ar Total Score: 8 [facility] Progress Note (SOAP) Subjective: c/o anxiety, headache, and sweats. Objective: 06/17/19 10:52 Vital Signs 06/17/19 06/17/19 06:36 09:52 Temperature 97.3 F L 98.7 F Pulse Rate 72 100 H Respiratory 18 20 Rate Blood Pressure 113/76 123/91 Laboratory Last Values WBC 7.4 K/mm3 (4.0-10.0) 06/16/19 08:15 RBC 4.56 M/mm3 (4.00-5.60) 06/16/19 08:15 Hgb 13.2 GM/dL (11.7-16.9) 06/16/19 08:15 Hct 41.1 % (35.4-49) 06/16/19 08:15 MCV 90.1 fl (80-96) 06/16/19 08:15 MCH 29.0 pg (25.7-33.7) 06/16/19 08:15 MCHC 32.2 g/dl (32.0-35.9) 06/16/19 08:15 RDW 15.9 % (11.9-15.9) 06/16/19 08:15 Plt Count 250 K/MM3 (134-434) 06/16/19 08:15 MPV 10.2 fl (7.5-11.1) 06/16/19 08:15 Sodium 139 mmol/L (136-145) 06/16/19 08:15 Potassium 4.4 mmol/L (3.5-5.1) 06/16/19 08:15 Chloride 108 mmol/L (98-107) H 06/16/19 08:15 Carbon Dioxide 26 mmol/L (21-32) 06/16/19 08:15 Anion Gap 6 MMOL/L (8-16) L 06/16/19 08:15 BUN 12.9 mg/dL (7-18) 06/16/19 08:15 Creatinine 0.7 mg/dL (0.55-1.3) 06/16/19 08:15 Est GFR (CKD-EPI)AfAm 127.53 06/16/19 08:15 Est GFR (CKD-EPI)NonAf 110.04 06/16/19 08:15 Random Glucose 132 mg/dL (74-106) H 06/16/19 08:15 Calcium 8.1 mg/dL (8.5-10.1) L 06/16/19 08:15 Total Bilirubin 0.9 mg/dL (0.2-1) 06/16/19 08:15 AST 20 U/L (15-37) 06/16/19 08:15 ALT 38 U/L (13-61) 06/16/19 08:15 Alkaline Phosphatase 74 U/L (45-117) 06/16/19 08:15 Total Protein 6.6 g/dl (6.4-8.2) 06/16/19 08:15 Albumin 3.3 g/dl (3.4-5.0) L 06/16/19 08:15 Urine Color Dk yellow 06/16/19 14:30 Urine Appearance Clear 06/16/19 14:30 Urine pH 7.5 (5.0-8.0) D 06/16/19 14:30 Ur Specific [place] 1.031 (1.010-1.035) 06/16/19 14:30 Urine Protein 1+ (NEGATIVE) H 06/16/19 14:30 Urine Glucose (UA) Negative (NEGATIVE) 06/16/19 14:30 Urine Ketones Trace (NEGATIVE) H 06/16/19 14:30 Urine Blood Negative (NEGATIVE) 06/16/19 14:30 Urine Nitrite Negative (NEGATIVE) 06/16/19 14:30 Urine Bilirubin Negative (NEGATIVE) 06/16/19 14:30 Urine Urobilinogen 1.0 mg/dL (0.2-1.0) 06/16/19 14:30 Ur Leukocyte Esterase Negative (NEGATIVE) 06/16/19 14:30 Urine WBC (Auto) 2 /hpf (0-5) 06/16/19 14:30 Urine RBC (Auto) 1 /hpf (0-4) 06/16/19 14:30 Urine Casts (Auto) 39 /lpf (0-8) 06/16/19 14:30 U Epithel Cells (Auto) 2.4 /HPF (0-5/HPF) 06/16/19 14:30 Urine Bacteria (Auto) 14.3 /hpf (NEGATIVE) 06/16/19 14:30 Labs noted. Assessment: 06/17/19 10:53 AOX3, in no acute respiratory distress. Full ROM, ambulating in the unit. Withdrawal symptoms. For d/c tomorrow. Plan: continue detox. Discharge in AM.
[2019-06-17] MEDS: BISMUTH SUBSALICYLATE 524 MG/30 ML UD PO PRN ×3 (13:23→20:09)
[2019-06-17] MEDS: THIAMINE HCL 100 MG TABLET (FP) PO SCH (22:13)
[2019-06-17] MEDS: MELATONIN 5 MG TABLETS PO PRN (22:14)
[2019-06-18] MEDS ORDERED: diazePAM 5 MG TABLET PO ONE (06:00)
[2019-06-18 06:15] VITALS: BP 144/92; PULSE 91; TEMP 97.7
[2019-06-18] MEDS: BISMUTH SUBSALICYLATE 524 MG/30 ML UD PO PRN (07:31)
--- NOTE | 2019-06-18 12:28 | DS ---
[facility] Detox Discharge Summary Admission Date: 06/15/19 Discharge Date: 06/18/19 - History Present History: Alcohol Dependence, Sedative Dependence Additional Comments: 49 years old male admitted on 06/15/19 for alcohol and benzo withdrawal sx management treated with valium detox regiment patient has completed valium regimen and tolerated well alert oriented x 3 respiratory clear lungs bilaterally on auscultation skin warm and dry abdomen soft round no rebound tenderness - Physical Exam Results Vital Signs: Vital Signs Temperature 97.7 F 06/18/19 06:14 Pulse Rate 91 H 06/18/19 06:14 Respiratory Rate 16 06/18/19 06:14 Blood Pressure 144/92 06/18/19 06:14 O2 Sat by Pulse Oximetry (%) Pertinent Admission Physical Exam Findings: alcohol and benzo withdrawal Laboratory Last Values WBC 7.4 K/mm3 (4.0-10.0) 06/16/19 08:15 RBC 4.56 M/mm3 (4.00-5.60) 06/16/19 08:15 Hgb 13.2 GM/dL (11.7-16.9) 06/16/19 08:15 Hct 41.1 % (35.4-49) 06/16/19 08:15 MCV 90.1 fl (80-96) 06/16/19 08:15 MCH 29.0 pg (25.7-33.7) 06/16/19 08:15 MCHC 32.2 g/dl (32.0-35.9) 06/16/19 08:15 RDW 15.9 % (11.9-15.9) 06/16/19 08:15 Plt Count 250 K/MM3 (134-434) 06/16/19 08:15 MPV 10.2 fl (7.5-11.1) 06/16/19 08:15 Sodium 139 mmol/L (136-145) 06/16/19 08:15 Potassium 4.4 mmol/L (3.5-5.1) 06/16/19 08:15 Chloride 108 mmol/L (98-107) H 06/16/19 08:15 Carbon Dioxide 26 mmol/L (21-32) 06/16/19 08:15 Anion Gap 6 MMOL/L (8-16) L 06/16/19 08:15 BUN 12.9 mg/dL (7-18) 06/16/19 08:15 Creatinine 0.7 mg/dL (0.55-1.3) 06/16/19 08:15 Est GFR (CKD-EPI)AfAm 127.53 06/16/19 08:15 Est GFR (CKD-EPI)NonAf 110.04 06/16/19 08:15 Random Glucose 132 mg/dL (74-106) H 06/16/19 08:15 Calcium 8.1 mg/dL (8.5-10.1) L 06/16/19 08:15 Total Bilirubin 0.9 mg/dL (0.2-1) 06/16/19 08:15 AST 20 U/L (15-37) 06/16/19 08:15 ALT 38 U/L (13-61) 06/16/19 08:15 Alkaline Phosphatase 74 U/L (45-117) 06/16/19 08:15 Total Protein 6.6 g/dl (6.4-8.2) 06/16/19 08:15 Albumin 3.3 g/dl (3.4-5.0) L 06/16/19 08:15 Urine Color Dk yellow 06/16/19 14:30 Urine Appearance Clear 06/16/19 14:30 Urine pH 7.5 (5.0-8.0) D 06/16/19 14:30 Ur Specific [place] 1.031 (1.010-1.035) 06/16/19 14:30 Urine Protein 1+ (NEGATIVE) H 06/16/19 14:30 Urine Glucose (UA) Negative (NEGATIVE) 06/16/19 14:30 Urine Ketones Trace (NEGATIVE) H 06/16/19 14:30 Urine Blood Negative (NEGATIVE) 06/16/19 14:30 Urine Nitrite Negative (NEGATIVE) 06/16/19 14:30 Urine Bilirubin Negative (NEGATIVE) 06/16/19 14:30 Urine Urobilinogen 1.0 mg/dL (0.2-1.0) 06/16/19 14:30 Ur Leukocyte Esterase Negative (NEGATIVE) 06/16/19 14:30 Urine WBC (Auto) 2 /hpf (0-5) 06/16/19 14:30 Urine RBC (Auto) 1 /hpf (0-4) 06/16/19 14:30 Urine Casts (Auto) 39 /lpf (0-8) 06/16/19 14:30 U Epithel Cells (Auto) 2.4 /HPF (0-5/HPF) 06/16/19 14:30 Urine Bacteria (Auto) 14.3 /hpf (NEGATIVE) 06/16/19 14:30 lab noted - Treatment Hospital Course: Detox Protocol Followed, Detoxed Safely, Responded well, Discharged Condition Good, Rehab Referral Accepted Patient has Accepted a Rehab Referral to: [facility] rehab - Medication Discharge Medications: Ambulatory Orders NK [No Known Home Medication] 06/15/19 - Diagnosis (1) Alcohol dependence with uncomplicated withdrawal Status: Acute (2) Nicotine dependence Status: Acute Qualifiers: Nicotine product type: cigarettes Substance use status: in withdrawal Qualified Code(s): F17.213 - Nicotine dependence, cigarettes, with withdrawal (3) Sedative, hypnotic or anxiolytic dependence with withdrawal, uncomplicated Status: Acute - AMA Did Patient Leave Against Medical Advice: No CIWA Score - CIWA Score Nausea/Vomitin-No Nausea/No Vomiting Muscle Tremors: None Anxiety: 2 Agitation: 0-Normal Activity Paroxysmal Sweats: 2 Orientation: 0-Oriented Tacttile Disturbances: 0-None Auditory Disturbances: 0-None Visual Disturbances: 0-None Headache: 0-None Present CIWA-Ar Total Score: 4
== END 2019-06-18 08:35 | disposition home or self-care (01) | DRG 774 ==
LOC: YASAS 18:04 → Y3N 21:23
PROVIDERS: ADMIT Allergy & Immunology; ATTEND Allergy & Immunology
PROC: HZ2ZZZZ Detoxification Services for Substance Abuse Treatment (ICD-10-PCS; principal; 2019-06-15)
DX: F10.230 Alcohol dependence with withdrawal, uncomplicated (principal); F13.230 Sedative, hypnotic or anxiolytic dependence with withdrawal, uncomplicated; F14.20 Cocaine dependence, uncomplicated; F17.213 Nicotine dependence, cigarettes, with withdrawal; F19.24 Other psychoactive substance dependence with psychoactive substance-induced mood disorder; F41.9 Anxiety disorder, unspecified; H54.62 Unqualified visual loss, left eye, normal vision right eye; Z87.828 Personal history of other (healed) physical injury and trauma; Z59.0 Homelessness; Z91.013 Allergy to seafood
CPT/HCPCS: 36415; 80053; 81003; 85027

== ENCOUNTER 2020-09-25 15:15 | Inpatient (IN) | payer OTHER ==
[2020-09-25 16:21] VITALS: BMI 33.3
[2020-09-25] MEDS ORDERED: MAG HYDROX/AL HYDROX/SIMETH 30 ML UNIT-DOSE CUP PO PRN (22:00)
[2020-09-25] MEDS ORDERED: MAGNESIUM CITRATE 300 ML BOTTLE PO PRN (22:00)
[2020-09-25] MEDS ORDERED: BISMUTH SUBSALICYLATE 524 MG/30 ML UD PO PRN (22:00)
[2020-09-25] MEDS ORDERED: MENTHOL/PHENOL 1 EACH UD MM PRN (22:00)
[2020-09-25] MEDS ORDERED: NICOTINE POLACRILEX 2 MG GUM BUC PRN (22:00)
[2020-09-25] MEDS ORDERED: ACETAMINOPHEN 325 MG TABLET (FP) PO PRN ×2 (22:00)
[2020-09-25] MEDS ORDERED: MAGNESIUM HYDROX 2400MG/30ML ORAL SUSPENSION 30 ML CUP PO PRN (22:00)
[2020-09-25] MEDS ORDERED: ONDANSETRON *ODT* 4 MG TABLET SL PRN (22:00)
[2020-09-25] MEDS ORDERED: METHADONE HCL 10 MG TABLET (FOR DETOX USE ONLY) PO ONE (22:00)
[2020-09-25] MEDS: THIAMINE HCL 100 MG TABLET (FP) PO SCH (23:17)
[2020-09-25] MEDS: MELATONIN 5 MG TABLETS PO SCH (23:17)
[2020-09-26] MEDS: cloNIDine HCL 0.1 MG TABLET PO PRN ×3 (00:49→15:09)
[2020-09-26] MEDS: METHOCARBAMOL 500 MG TABLET PO PRN ×2 (00:49→10:20)
[2020-09-26] MEDS: IBUPROFEN 400 MG TABLET (FP) PO PRN ×2 (02:06→19:27)
[2020-09-26] MEDS ORDERED: METHADONE HCL 10 MG TABLET (FOR DETOX USE ONLY) ONE (09:56)
[2020-09-26] MEDS ORDERED: METHADONE HCL 5 MG TABLET (FOR DETOX USE ONLY) ONE (09:56)
[2020-09-26] MEDS ORDERED: METHADONE (DETOX) 20 MG, METHADONE (DETOX) 5 MG PO ONE (10:00)
[2020-09-26] MEDS: NICOTINE 14 MG/24 HOURS TOPICAL PATCH TD SCH (10:20)
[2020-09-26] MEDS: PRENATAL VITAMINS W/ FOLIC ACID TABLET (FP) PO SCH (10:20)
[2020-09-26 10:38] LABS: CALCIUM 9.4 mg/dL (8.5-10.1)
[2020-09-26 10:39] LABS: ALBUMIN 3.9 g/dl (3.4-5.0); BLOOD UREA NITROGEN 10.2 mg/dL (7-18); CREATININE 0.8 mg/dL (0.55-1.3)
[2020-09-26 10:40] LABS: BILIRUBIN,TOTAL 0.4 mg/dL (0.2-1); TOT PROT 7.7 g/dl (6.4-8.2)
[2020-09-26 10:42] LABS: HEMATOCRIT 44.9 % (35.4-49); MCH 30.4 pg (25.7-33.7); MCHC 33.5 g/dl (32.0-35.9); MEAN PLT VOLUME 9.8 fl (7.5-11.1); PLATELET COUNT 307 K/MM3 (134-434); RBC 4.94 M/mm3 (4.00-5.60); RDW 14.6 % (11.9-15.9); WHITE BLOOD COUNT 12.3 K/mm3 (4.0-10.0)
[2020-09-26] MEDS: hydrOXYzine PAMOATE 25 MG CAPSULE (FP) PO PRN (19:27)
[2020-09-26] MEDS: MELATONIN 5 MG TABLETS PO SCH (21:48)
[2020-09-26] MEDS: traZODone HCL 100 MG TABLET (FP) PO SCH (21:49)
[2020-09-26] MEDS: THIAMINE HCL 100 MG TABLET (FP) PO SCH (21:49)
[2020-09-27] MEDS ORDERED: METHADONE HCL 10 MG TABLET (FOR DETOX USE ONLY) PO ONE (10:00)
[2020-09-27] MEDS: NICOTINE 14 MG/24 HOURS TOPICAL PATCH TD SCH (10:48)
[2020-09-27] MEDS: PRENATAL VITAMINS W/ FOLIC ACID TABLET (FP) PO SCH (10:48)
[2020-09-27] MEDS: METHOCARBAMOL 500 MG TABLET PO PRN ×2 (10:48→18:58)
[2020-09-27] MEDS: hydrOXYzine PAMOATE 25 MG CAPSULE (FP) PO PRN (16:00)
[2020-09-27] MEDS: IBUPROFEN 400 MG TABLET (FP) PO PRN (16:00)
[2020-09-27] MEDS: THIAMINE HCL 100 MG TABLET (FP) PO SCH (22:22)
[2020-09-27] MEDS: MELATONIN 5 MG TABLETS PO SCH (22:22)
[2020-09-27] MEDS: traZODone HCL 100 MG TABLET (FP) PO SCH (22:22)
[2020-09-28] MEDS ORDERED: METHADONE HCL 10 MG TABLET (FOR DETOX USE ONLY) ONE (08:56)
[2020-09-28] MEDS ORDERED: METHADONE HCL 5 MG TABLET (FOR DETOX USE ONLY) ONE (08:57)
[2020-09-28] MEDS ORDERED: METHADONE (DETOX) 10 MG, METHADONE (DETOX) 5 MG PO ONE (10:00)
[2020-09-28] MEDS: PRENATAL VITAMINS W/ FOLIC ACID TABLET (FP) PO SCH (10:53)
[2020-09-28] MEDS: NICOTINE 14 MG/24 HOURS TOPICAL PATCH TD SCH (10:55)
[2020-09-28] MEDS: METHOCARBAMOL 500 MG TABLET PO PRN ×2 (10:55→17:06)
[2020-09-28 14:09] LABS: SARS-CoV-2 NAA Not Detected (Not Detected)
[2020-09-28] MEDS: traZODone HCL 100 MG TABLET (FP) PO SCH (22:23)
[2020-09-28] MEDS: THIAMINE HCL 100 MG TABLET (FP) PO SCH (22:23)
[2020-09-28] MEDS: MELATONIN 5 MG TABLETS PO SCH (22:24)
[2020-09-29] MEDS ORDERED: METHADONE HCL 10 MG TABLET (FOR DETOX USE ONLY) PO ONE (10:00)
[2020-09-29] MEDS: NICOTINE 14 MG/24 HOURS TOPICAL PATCH TD SCH (10:48)
[2020-09-29] MEDS: PRENATAL VITAMINS W/ FOLIC ACID TABLET (FP) PO SCH (10:48)
[2020-09-29] MEDS: MELATONIN 5 MG TABLETS PO SCH (22:14)
[2020-09-29] MEDS: hydrOXYzine PAMOATE 25 MG CAPSULE (FP) PO PRN (22:14)
[2020-09-29] MEDS: THIAMINE HCL 100 MG TABLET (FP) PO SCH (22:14)
[2020-09-29] MEDS: traZODone HCL 100 MG TABLET (FP) PO SCH (22:14)
[2020-09-30] MEDS ORDERED: METHADONE HCL 5 MG TABLET (FOR DETOX USE ONLY) PO ONE (06:00)
[2020-09-30] MEDS: NICOTINE 14 MG/24 HOURS TOPICAL PATCH TD SCH (10:29)
[2020-09-30] MEDS: PRENATAL VITAMINS W/ FOLIC ACID TABLET (FP) PO SCH (10:29)
[2020-09-30 13:11] VITALS: BP 120/84; PULSE 64; TEMP 97.3
== END 2020-09-30 03:36 | disposition other institution (70) | DRG 773 ==
LOC: YASAS 15:15 → Y3N 22:33
PROVIDERS: ADMIT Allergy & Immunology; ATTEND Allergy & Immunology
PROC: HZ2ZZZZ Detoxification Services for Substance Abuse Treatment (ICD-10-PCS; principal; 2020-09-25)
DX: F11.23 Opioid dependence with withdrawal (principal); F10.20 Alcohol dependence, uncomplicated; F13.20 Sedative, hypnotic or anxiolytic dependence, uncomplicated; F14.20 Cocaine dependence, uncomplicated; F12.20 Cannabis dependence, uncomplicated; F17.210 Nicotine dependence, cigarettes, uncomplicated; F19.280 Other psychoactive substance dependence with psychoactive substance-induced anxiety disorder; F19.282 Other psychoactive substance dependence with psychoactive substance-induced sleep disorder; G40.909 Epilepsy, unspecified, not intractable, without status epilepticus; H54.62 Unqualified visual loss, left eye, normal vision right eye; Z62.810 Personal history of physical and sexual abuse in childhood; Z56.0 Unemployment, unspecified; Z59.0 Homelessness; Z91.013 Allergy to seafood
CPT/HCPCS: 36415; 80053; 84132; 85027; 86780; 93005; 93010; C9803; J0735; U0003; U0005

== ENCOUNTER 2020-09-30 15:50 | Inpatient (IN) | payer OTHER ==
[2020-09-30] MEDS ORDERED: MAGNESIUM CITRATE 300 ML BOTTLE PO PRN (18:23)
[2020-09-30] MEDS ORDERED: NICOTINE POLACRILEX 2 MG GUM BUC PRN (18:23)
[2020-09-30] MEDS ORDERED: LOPERAMIDE HCL 2 MG CAPSULE PO PRN (18:23)
[2020-09-30] MEDS ORDERED: MAG HYDROX/AL HYDROX/SIMETH 30 ML UNIT-DOSE CUP PO PRN (18:23)
[2020-09-30] MEDS ORDERED: IBUPROFEN 400 MG TABLET (FP) PO PRN (18:23)
[2020-09-30] MEDS ORDERED: MENTHOL/PHENOL 1 EACH UD MM PRN (18:23)
[2020-09-30] MEDS ORDERED: ACETAMINOPHEN 325 MG TABLET (FP) PO PRN (18:23)
[2020-09-30] MEDS ORDERED: P-EPHED 60MG/TRIPROLIDI 2.5MG TABLET PO PRN (18:23)
[2020-09-30] MEDS ORDERED: guaiFENesin 200 MG/10 ML 10 ML UNIT-DOSE CUPS PO PRN (18:23)
[2020-09-30] MEDS ORDERED: MAGNESIUM HYDROX 2400MG/30ML ORAL SUSPENSION 30 ML CUP PO PRN (18:23)
[2020-09-30] MEDS ORDERED: METHOCARBAMOL 500 MG TABLET PO PRN (19:05)
[2020-09-30] MEDS ORDERED: traZODone HCL 50 MG TABLET (FP) PO ONE (21:32)
[2020-09-30] MEDS: THIAMINE HCL 100 MG TABLET (FP) PO SCH (22:13)
[2020-09-30] MEDS: hydrOXYzine PAMOATE 25 MG CAPSULE (FP) PO PRN (22:13)
[2020-09-30] MEDS: MELATONIN 5 MG TABLETS PO SCH (22:14)
[2020-10-01] MEDS: PRENATAL VITAMINS W/ FOLIC ACID TABLET (FP) PO SCH (09:57)
[2020-10-01] MEDS: MECLIZINE HCL 12.5 MG TABLET PO PRN (15:29)
[2020-10-01] MEDS: MELATONIN 5 MG TABLETS PO SCH (21:46)
[2020-10-01] MEDS: THIAMINE HCL 100 MG TABLET (FP) PO SCH (21:46)
[2020-10-01] MEDS: hydrOXYzine PAMOATE 25 MG CAPSULE (FP) PO PRN (21:47)
[2020-10-02] MEDS ORDERED: PT OWN MED DRAWER 7, Y5N ONE ×2 (10:04→19:23)
[2020-10-02] MEDS: PRENATAL VITAMINS W/ FOLIC ACID TABLET (FP) PO SCH (10:04)
[2020-10-02] MEDS: MECLIZINE HCL 12.5 MG TABLET PO PRN ×2 (10:04→19:24)
[2020-10-02] MEDS: BACLOFEN 10 MG TABLET (FP) PO SCH ×2 (13:20→21:15)
[2020-10-02] MEDS: THIAMINE HCL 100 MG TABLET (FP) PO SCH (21:15)
[2020-10-02] MEDS: traZODone HCL 100 MG TABLET (FP) PO SCH (21:15)
[2020-10-02] MEDS: MELATONIN 5 MG TABLETS PO SCH (21:15)
[2020-10-03] MEDS: BACLOFEN 10 MG TABLET (FP) PO SCH ×4 (06:58→21:48)
[2020-10-03] MEDS: PRENATAL VITAMINS W/ FOLIC ACID TABLET (FP) PO SCH (10:29)
[2020-10-03] MEDS: MECLIZINE HCL 12.5 MG TABLET PO PRN (14:18)
[2020-10-03] MEDS: MELATONIN 5 MG TABLETS PO SCH (21:48)
[2020-10-03] MEDS: traZODone HCL 100 MG TABLET (FP) PO SCH (21:48)
[2020-10-03] MEDS: hydrOXYzine PAMOATE 25 MG CAPSULE (FP) PO PRN (21:48)
[2020-10-03] MEDS: THIAMINE HCL 100 MG TABLET (FP) PO SCH (21:48)
[2020-10-04] MEDS: BACLOFEN 10 MG TABLET (FP) PO SCH ×3 (07:17→21:22)
[2020-10-04 10:07] LABS: SARS-CoV-2 NAA Not Detected (Not Detected)
[2020-10-04] MEDS: PRENATAL VITAMINS W/ FOLIC ACID TABLET (FP) PO SCH (11:04)
[2020-10-04] MEDS: MECLIZINE HCL 12.5 MG TABLET PO PRN (21:22)
[2020-10-04] MEDS: THIAMINE HCL 100 MG TABLET (FP) PO SCH (21:22)
[2020-10-04] MEDS: MELATONIN 5 MG TABLETS PO SCH (21:22)
[2020-10-04] MEDS: traZODone HCL 100 MG TABLET (FP) PO SCH (21:22)
[2020-10-05] MEDS: BACLOFEN 10 MG TABLET (FP) PO SCH ×3 (06:37→21:41)
[2020-10-05] MEDS: PRENATAL VITAMINS W/ FOLIC ACID TABLET (FP) PO SCH (10:31)
[2020-10-05] MEDS: traZODone HCL 100 MG TABLET (FP) PO SCH (21:41)
[2020-10-05] MEDS: THIAMINE HCL 100 MG TABLET (FP) PO SCH (21:41)
[2020-10-05] MEDS: MELATONIN 5 MG TABLETS PO SCH (21:41)
[2020-10-06] MEDS: BACLOFEN 10 MG TABLET (FP) PO SCH ×3 (07:01→21:09)
[2020-10-06] MEDS: PRENATAL VITAMINS W/ FOLIC ACID TABLET (FP) PO SCH (09:52)
[2020-10-06] MEDS ORDERED: PT OWN MED DRAWER 7, Y5N ONE (11:09)
[2020-10-06] MEDS: MECLIZINE HCL 12.5 MG TABLET PO PRN (11:10)
[2020-10-06] MEDS: hydrOXYzine PAMOATE 25 MG CAPSULE (FP) PO PRN (11:10)
[2020-10-06] MEDS: THIAMINE HCL 100 MG TABLET (FP) PO SCH (21:09)
[2020-10-06] MEDS: MELATONIN 5 MG TABLETS PO SCH (21:09)
[2020-10-06] MEDS: traZODone HCL 100 MG TABLET (FP) PO SCH (21:09)
[2020-10-07] MEDS: BACLOFEN 10 MG TABLET (FP) PO SCH (06:39)
[2020-10-07 07:14] VITALS: BP 113/73; PULSE 54; TEMP 97.6
[2020-10-07] MEDS: PRENATAL VITAMINS W/ FOLIC ACID TABLET (FP) PO SCH (10:07)
== END 2020-10-07 11:00 | disposition home or self-care (01) | DRG 772 ==
LOC: YASAS 15:50 → Y5N 15:51
PROVIDERS: ADMIT Allergy & Immunology; ATTEND Allergy & Immunology
PROC: HZ42ZZZ Group Counseling for Substance Abuse Treatment, Cognitive-Behavioral (ICD-10-PCS; principal; 2020-09-30)
DX: F11.20 Opioid dependence, uncomplicated (principal); F14.20 Cocaine dependence, uncomplicated; F12.20 Cannabis dependence, uncomplicated; F17.210 Nicotine dependence, cigarettes, uncomplicated; F19.282 Other psychoactive substance dependence with psychoactive substance-induced sleep disorder
CPT/HCPCS: C9803; J0475; U0003; U0005

== ENCOUNTER 2020-11-12 15:50 | Inpatient (IN) | payer OTHER ==
[2020-11-12] MEDS ORDERED: traZODone HCL 50 MG TABLET (FP) PO PRN (17:28)
[2020-11-12] MEDS ORDERED: MAGNESIUM CITRATE 300 ML BOTTLE PO PRN (17:28)
[2020-11-12] MEDS ORDERED: MENTHOL/PHENOL 1 EACH UD MM PRN (17:28)
[2020-11-12] MEDS ORDERED: MAG HYDROX/AL HYDROX/SIMETH 30 ML UNIT-DOSE CUP PO PRN (17:28)
[2020-11-12] MEDS ORDERED: ACETAMINOPHEN 325 MG TABLET (FP) PO PRN ×2 (17:28)
[2020-11-12] MEDS ORDERED: IBUPROFEN 400 MG TABLET (FP) PO PRN (17:28)
[2020-11-12] MEDS ORDERED: NICOTINE POLACRILEX 2 MG GUM BUC PRN (17:28)
[2020-11-12] MEDS ORDERED: BISMUTH SUBSALICYLATE 524 MG/30 ML PO PRN (17:28)
[2020-11-12] MEDS ORDERED: ONDANSETRON *ODT* 4 MG TABLET SL PRN (17:28)
[2020-11-12] MEDS ORDERED: MAGNESIUM HYDROX 2400MG/30ML ORAL SUSPENSION 30 ML CUP PO PRN (17:28)
[2020-11-12] MEDS ORDERED: cloNIDine HCL 0.1 MG TABLET PO PRN (17:30)
[2020-11-12] MEDS ORDERED: CALAMINE 8% TOPICAL LOTION 177 ML BOTTLE TP PRN (17:31)
[2020-11-12] MEDS ORDERED: diphenhydrAMINE HCL 25 MG CAPSULE (FP) PO ONE (17:32)
[2020-11-12 17:55] VITALS: BMI 29.1
[2020-11-12] MEDS ORDERED: METHADONE HCL 10 MG TABLET (FOR DETOX USE ONLY) PO ONE (19:30)
[2020-11-12] MEDS: THIAMINE HCL 100 MG TABLET (FP) PO SCH (22:14)
[2020-11-12] MEDS: MELATONIN 5 MG TABLETS PO SCH (22:15)
[2020-11-12] MEDS: METHOCARBAMOL 500 MG TABLET PO PRN (22:18)
[2020-11-13] MEDS ORDERED: METHADONE HCL 10 MG TABLET (FOR DETOX USE ONLY) PO ONE ×2 (09:30)
[2020-11-13] MEDS ORDERED: METHADONE HCL 5 MG TABLET (FOR DETOX USE ONLY) PO ONE ×2 (10:00)
[2020-11-13] MEDS: METHOCARBAMOL 500 MG TABLET PO PRN (10:07)
[2020-11-13] MEDS: PRENATAL VITAMINS W/ FOLIC ACID TABLET (FP) PO SCH (10:07)
[2020-11-13] MEDS: hydrOXYzine PAMOATE 25 MG CAPSULE (FP) PO PRN (10:07)
[2020-11-13] MEDS: NICOTINE 7 MG/24 HOURS TOPICAL PATCH TD SCH (10:10)
[2020-11-13 10:47] LABS: BLOOD UREA NITROGEN 10.3 mg/dL (7-18)
[2020-11-13 10:48] LABS: ALBUMIN 3.5 g/dl (3.4-5.0); CALCIUM 8.7 mg/dL (8.5-10.1)
[2020-11-13 10:49] LABS: HEMATOCRIT 41.6 % (35.4-49); HEMOGLOBIN 13.9 GM/dL (11.7-16.9); MCHC 33.5 g/dl (32.0-35.9); MEAN CELL VOLUME 89.6 fl (80-96); MEAN PLT VOLUME 10.1 fl (7.5-11.1); PLATELET COUNT 183 10^3/uL (134-434); RBC 4.64 M/mm3 (4.00-5.60); RDW 14.5 % (11.9-15.9); WHITE BLOOD COUNT 7.5 K/mm3 (4.0-10.0)
[2020-11-13 10:51] LABS: CREATININE 0.6 mg/dL (0.55-1.3)
[2020-11-13 10:53] LABS: BILIRUBIN,TOTAL 0.7 mg/dL (0.2-1); TOT PROT 6.2 g/dl (6.4-8.2)
[2020-11-13] MEDS: MELATONIN 5 MG TABLETS PO SCH (22:32)
[2020-11-13] MEDS: THIAMINE HCL 100 MG TABLET (FP) PO SCH (22:32)
[2020-11-14] MEDS: hydrOXYzine PAMOATE 25 MG CAPSULE (FP) PO PRN (09:53)
[2020-11-14] MEDS: PRENATAL VITAMINS W/ FOLIC ACID TABLET (FP) PO SCH (09:54)
[2020-11-14] MEDS: METHOCARBAMOL 500 MG TABLET PO PRN (09:54)
[2020-11-14] MEDS: NICOTINE 7 MG/24 HOURS TOPICAL PATCH TD SCH (09:55)
[2020-11-14] MEDS ORDERED: METHADONE HCL 10 MG TABLET (FOR DETOX USE ONLY) PO ONE (10:00)
[2020-11-14] MEDS: THIAMINE HCL 100 MG TABLET (FP) PO SCH (22:47)
[2020-11-14] MEDS: MELATONIN 5 MG TABLETS PO SCH (22:47)
[2020-11-15] MEDS ORDERED: METHADONE HCL 5 MG TABLET (FOR DETOX USE ONLY) PO ONE (06:00)
[2020-11-15 09:28] VITALS: BP 121/79; PULSE 50; TEMP 97.3
[2020-11-15] MEDS: NICOTINE 7 MG/24 HOURS TOPICAL PATCH TD SCH (11:27)
[2020-11-15] MEDS: PRENATAL VITAMINS W/ FOLIC ACID TABLET (FP) PO SCH (11:27)
[2020-11-15 12:42] LABS: SARS-CoV-2 NAA Not Detected (Not Detected)
== END 2020-11-15 15:30 | disposition other institution (70) | DRG 773 ==
LOC: YASAS 15:50 → Y6N 18:29
PROVIDERS: ADMIT Allergy & Immunology; ATTEND Allergy & Immunology
PROC: HZ2ZZZZ Detoxification Services for Substance Abuse Treatment (ICD-10-PCS; principal; 2020-11-12)
DX: F11.23 Opioid dependence with withdrawal (principal); F12.20 Cannabis dependence, uncomplicated; F17.210 Nicotine dependence, cigarettes, uncomplicated; I25.2 Old myocardial infarction; H53.8 Other visual disturbances; Z86.69 Personal history of other diseases of the nervous system and sense organs; Z91.013 Allergy to seafood
CPT/HCPCS: 36415; 80053; 85027; 86780; C9803; J0735; U0003; U0005

== ENCOUNTER 2020-11-15 15:41 | Inpatient (IN) | payer OTHER ==
[2020-11-15] MEDS ORDERED: IBUPROFEN 400 MG TABLET (FP) PO PRN (18:20)
[2020-11-15] MEDS ORDERED: MAGNESIUM CITRATE 300 ML BOTTLE PO PRN (18:20)
[2020-11-15] MEDS ORDERED: ACETAMINOPHEN 325 MG TABLET (FP) PO PRN (18:20)
[2020-11-15] MEDS ORDERED: MAG HYDROX/AL HYDROX/SIMETH 30 ML UNIT-DOSE CUP PO PRN (18:20)
[2020-11-15] MEDS ORDERED: MAGNESIUM HYDROX 2400MG/30ML ORAL SUSPENSION 30 ML CUP PO PRN (18:20)
[2020-11-15] MEDS ORDERED: P-EPHED 60MG/TRIPROLIDI 2.5MG TABLET PO PRN (18:20)
[2020-11-15] MEDS ORDERED: LOPERAMIDE HCL 2 MG CAPSULE PO PRN (18:20)
[2020-11-15] MEDS ORDERED: NICOTINE POLACRILEX 2 MG GUM BUC PRN (18:20)
[2020-11-15] MEDS ORDERED: MENTHOL/PHENOL 1 EACH UD MM PRN (18:20)
[2020-11-15] MEDS ORDERED: guaiFENesin 200 MG/10 ML 10 ML UNIT-DOSE CUPS PO PRN (18:20)
[2020-11-15] MEDS: MELATONIN 5 MG TABLETS PO SCH (21:37)
[2020-11-15] MEDS: THIAMINE HCL 100 MG TABLET (FP) PO SCH (21:37)
[2020-11-16] MEDS: PRENATAL VITAMINS W/ FOLIC ACID TABLET (FP) PO SCH (10:51)
[2020-11-16] MEDS: THIAMINE HCL 100 MG TABLET (FP) PO SCH (21:36)
[2020-11-16] MEDS: MELATONIN 5 MG TABLETS PO SCH (21:36)
[2020-11-17] MEDS: PRENATAL VITAMINS W/ FOLIC ACID TABLET (FP) PO SCH (10:06)
[2020-11-17] MEDS: THIAMINE HCL 100 MG TABLET (FP) PO SCH (21:18)
[2020-11-17] MEDS: MELATONIN 5 MG TABLETS PO SCH (21:18)
[2020-11-18] MEDS ORDERED: INSULIN (NOVOLOG) ASPART 100 UNITS/ML 10ML VIAL ONE (02:12)
[2020-11-18 07:16] VITALS: BP 116/69; PULSE 42; TEMP 97.6
[2020-11-18] MEDS ORDERED: ONDANSETRON *ODT* 4 MG TABLET SL PRN (10:25)
[2020-11-18] MEDS: PRENATAL VITAMINS W/ FOLIC ACID TABLET (FP) PO SCH (10:51)
== END 2020-11-18 10:55 | disposition left against medical advice (07) | DRG 770 ==
LOC: YASAS 15:41 → Y5N 15:48
PROVIDERS: ADMIT Allergy & Immunology; ATTEND Allergy & Immunology
PROC: HZ42ZZZ Group Counseling for Substance Abuse Treatment, Cognitive-Behavioral (ICD-10-PCS; principal; 2020-11-15)
DX: F11.20 Opioid dependence, uncomplicated (principal); F14.20 Cocaine dependence, uncomplicated; F12.20 Cannabis dependence, uncomplicated; F17.210 Nicotine dependence, cigarettes, uncomplicated

== ENCOUNTER 2024-01-15 14:40 | Inpatient (IN) | payer OTHER ==
[2024-01-15 17:59] VITALS: BMI 25.0
[2024-01-15] MEDS ORDERED: NICOTINE POLACRILEX 2 MG GUM BUC PRN (19:00)
[2024-01-15] MEDS ORDERED: POLYETHYLENE GLYCOL (HEALTHYLAX) 3350 17 GM PACKET PO PRN (19:00)
[2024-01-15] MEDS ORDERED: NALOXONE HCL 0.4 MG/ML VIAL IM PRN (19:00)
[2024-01-15] MEDS ORDERED: BISMUTH SUBSALICYLATE 524 MG/30 ML PO PRN (19:00)
[2024-01-15] MEDS ORDERED: MAG HYDROX/AL HYDROX/SIMETH 30 ML UNIT-DOSE CUP PO PRN (19:00)
[2024-01-15] MEDS ORDERED: LOPERAMIDE HCL 2 MG CAPSULE PO PRN (19:00)
[2024-01-15] MEDS ORDERED: BENZOCAINE/MENTHOL (CHLORASEPTIC ) LOZENGE MM PRN (19:00)
[2024-01-15] MEDS ORDERED: DICYCLOMINE HCL 10 MG CAPSULE PO PRN (19:00)
[2024-01-15] MEDS ORDERED: BENZONATATE 200 MG CAPSULE PO PRN (19:00)
[2024-01-15] MEDS ORDERED: IBUPROFEN 400 MG TABLET (FP) PO PRN (19:00)
[2024-01-15] MEDS ORDERED: ACETAMINOPHEN 325 MG TABLET (FP) PO PRN (19:00)
[2024-01-15] MEDS ORDERED: guaiFENesin 600 MG TABLET.ER (FP) PO PRN (19:00)
[2024-01-15] MEDS ORDERED: IBUPROFEN 600 MG TABLET (FP) PO PRN (19:00)
[2024-01-15] MEDS ORDERED: MAGNESIUM HYDROX 2400MG/30ML ORAL SUSPENSION 30 ML CUP PO PRN (19:00)
[2024-01-15] MEDS ORDERED: NALOXONE (NARCAN) HCL 4 MG/0.1 ML SPRAY NS PRN (19:00)
[2024-01-15] MEDS ORDERED: P-EPHED 60MG/TRIPROLIDI 2.5MG TABLET PO PRN (19:00)
[2024-01-15] MEDS ORDERED: NICOTINE POLACRILEX 2 MG LOZENGE BC PRN (19:00)
[2024-01-15] MEDS: THIAMINE 100 MG TABLET PO SCH (22:19)
[2024-01-15] MEDS: hydrOXYzine PAMOATE 25 MG CAPSULE (FP) PO PRN (22:19)
[2024-01-15] MEDS: MELATONIN 5 MG TABLETS PO SCH (22:19)
[2024-01-15] MEDS: METHOCARBAMOL 500 MG TABLET PO PRN (22:19)
[2024-01-16 09:19] LABS: CHLORIDE 106 mmol/L (98-107); POTASSIUM 4.4 mmol/L (3.5-5.1); SODIUM 139 mmol/L (136-145)
[2024-01-16 09:24] LABS: ALBUMIN 3.2 g/dl (3.4-5.0); ANION GAP 6 mmol/L (4-13); CO2 28 mmol/L (21-32)
[2024-01-16 09:25] LABS: GLUCOSE,RANDOM 88 mg/dL (74-106)
[2024-01-16 09:26] LABS: SGPT/ALT 43 U/L (13-61)
[2024-01-16 09:29] LABS: ALK PHOS 83 U/L (45-117); BILIRUBIN,TOTAL 0.3 mg/dL (0.2-1); CREATININE 0.7 mg/dL (0.55-1.3); HEMATOCRIT 41.4 % (35.4-49); HEMOGLOBIN 13.8 GM/dL (11.7-16.9); MCH 29.7 pg (25.7-33.7); MCHC 33.4 g/dl (32.0-35.9); MEAN PLT VOLUME 8.6 fl (7.5-11.1); PLATELET COUNT 346 10^3/uL (134-434); RBC 4.66 M/mm3 (4.00-5.60); RDW 14.2 % (11.9-15.9); SGOT/AST 26 U/L (15-37); TOT PROT 6.4 g/dl (6.4-8.2); WHITE BLOOD COUNT 5.8 K/mm3 (4.0-10.0)
[2024-01-16] MEDS ORDERED: chlordiazePOXIDE HCL 25 MG CAPSULE PO PRN (09:34)
[2024-01-16] MEDS: PRENATAL VITAMINS W/ FOLIC ACID TABLET (FP) PO SCH (10:24)
[2024-01-16] MEDS: chlordiazePOXIDE HCL 25 MG CAPSULE PO SCH (10:24)
[2024-01-16] MEDS: ONDANSETRON *ODT* 4 MG TABLET SL PRN (10:26)
[2024-01-16] MEDS: NAPROXEN 500 MG TABLET PO SCH (22:05)
[2024-01-18] MEDS: chlordiazePOXIDE HCL 25 MG CAPSULE PO SCH (05:19)
[2024-01-19] MEDS ORDERED: chlordiazePOXIDE HCL 10 MG CAPSULE PO PRN
[2024-01-19] MEDS: chlordiazePOXIDE HCL 10 MG CAPSULE PO SCH (05:19)
[2024-01-20] MEDS: chlordiazePOXIDE HCL 10 MG CAPSULE PO SCH (05:22)
[2024-01-20 16:51] VITALS: BP 105/58; PULSE 53; RESP 18; TEMP 97.7
[2024-01-21] MEDS: chlordiazePOXIDE HCL 10 MG CAPSULE PO ONE (05:50)
== END 2024-01-21 08:46 | disposition home or self-care (01) | DRG 774 ==
LOC: YASAS 14:40 → Y3N 19:04
PROVIDERS: ADMIT Neuromusculoskeletal Medicine & OMM; ATTEND Neuromusculoskeletal Medicine & OMM
PROC: HZ2ZZZZ Detoxification Services for Substance Abuse Treatment (ICD-10-PCS; principal; 2024-01-15)
DX: F10.230 Alcohol dependence with withdrawal, uncomplicated (principal); F14.20 Cocaine dependence, uncomplicated; F12.20 Cannabis dependence, uncomplicated; F17.210 Nicotine dependence, cigarettes, uncomplicated; S93.401A Sprain of unspecified ligament of right ankle, initial encounter; X50.1XXA Overexertion from prolonged static or awkward postures, initial encounter; Y93.89 Activity, other specified; Y92.230 Patient room in hospital as the place of occurrence of the external cause
CPT/HCPCS: 36415; 73610-TC-RT-FY; 80053; 80305; 80307; 85027; 86780; 93005; 93010; Q0162

== ENCOUNTER 2024-07-14 10:58 | Inpatient (IN) | payer OTHER ==
[2024-07-14 11:10] VITALS: BMI 23.3
[2024-07-14] MEDS ORDERED: ONDANSETRON *ODT* 4 MG TABLET SL PRN (12:04)
[2024-07-14] MEDS ORDERED: BENZONATATE 200 MG CAPSULE PO PRN (12:04)
[2024-07-14] MEDS ORDERED: MAGNESIUM HYDROX 2400MG/30ML ORAL SUSPENSION 30 ML CUP PO PRN (12:04)
[2024-07-14] MEDS ORDERED: DICYCLOMINE HCL 10 MG CAPSULE PO PRN (12:04)
[2024-07-14] MEDS ORDERED: IBUPROFEN 600 MG TABLET (FP) PO PRN (12:04)
[2024-07-14] MEDS ORDERED: BENZOCAINE/MENTHOL (CHLORASEPTIC ) LOZENGE MM PRN (12:04)
[2024-07-14] MEDS ORDERED: ACETAMINOPHEN 325 MG TABLET (FP) PO PRN (12:04)
[2024-07-14] MEDS ORDERED: guaiFENesin 600 MG TABLET.ER (FP) PO PRN (12:04)
[2024-07-14] MEDS ORDERED: BISMUTH SUBSALICYLATE 262 MG/15 ML BTL PO PRN (12:04)
[2024-07-14] MEDS ORDERED: POLYETHYLENE GLYCOL (HEALTHYLAX) 3350 17 GM PACKET PO PRN (12:04)
[2024-07-14] MEDS ORDERED: NALOXONE (NARCAN) HCL 4 MG/0.1 ML SPRAY NS PRN (12:04)
[2024-07-14] MEDS ORDERED: LOPERAMIDE HCL 2 MG CAPSULE PO PRN (12:04)
[2024-07-14] MEDS ORDERED: MAG HYDROX/AL HYDROX/SIMETH 30 ML UNIT-DOSE CUP PO PRN (12:04)
[2024-07-14] MEDS: METHOCARBAMOL 500 MG TABLET PO PRN (12:57)
[2024-07-14] MEDS: hydrOXYzine PAMOATE 25 MG CAPSULE (FP) PO PRN (12:57)
[2024-07-14] MEDS: THIAMINE 100 MG TABLET PO SCH (22:30)
[2024-07-14] MEDS: MELATONIN 5 MG TABLETS PO SCH (22:30)
[2024-07-15 09:22] LABS: HEMATOCRIT 41.7 % (35.4-49); HEMOGLOBIN 13.5 GM/dL (11.7-16.9); MCH 29.5 pg (25.7-33.7); MCHC 32.5 g/dl (32.0-35.9); MEAN CELL VOLUME 90.7 fl (80-96); MEAN PLT VOLUME 8.9 fl (7.5-11.1); PLATELET COUNT 295 10^3/uL (134-434); RBC 4.59 M/mm3 (4.00-5.60); RDW 15.4 % (11.9-15.9); WHITE BLOOD COUNT 5.1 K/mm3 (4.0-10.0)
[2024-07-15 09:45] LABS: CHLORIDE 103 mmol/L (98-107); POTASSIUM 4.8 mmol/L (3.5-5.1); SODIUM 136 mmol/L (136-145)
[2024-07-15 09:55] LABS: ALBUMIN 3.4 g/dl (3.4-5.0); BLOOD UREA NITROGEN 12.2 mg/dL (7-18); GLUCOSE,RANDOM 114 mg/dL (74-106)
[2024-07-15 09:56] LABS: ANION GAP 3 mmol/L (4-13); CO2 30 mmol/L (21-32)
[2024-07-15 09:57] LABS: SGOT/AST 18 U/L (15-37); SGPT/ALT 27 U/L (13-61)
[2024-07-15 09:59] LABS: CREATININE 0.8 mg/dL (0.55-1.3)
[2024-07-15 10:00] LABS: BILIRUBIN,TOTAL 0.5 mg/dL (0.2-1); TOT PROT 6.5 g/dl (6.4-8.2)
[2024-07-15 10:01] LABS: ALK PHOS 76 U/L (45-117)
[2024-07-15] MEDS: diazePAM 5 MG TABLET PO SCH (10:26)
[2024-07-15] MEDS: PRENATAL VITAMINS W/ FOLIC ACID TABLET (FP) PO SCH (10:26)
[2024-07-15] MEDS: FLU VACCINE (FLULAVAL) PF 45 MCG/0.5 ML SYRINGE 2024-2025 IM ONE (11:07)
[2024-07-15] MEDS: diazePAM 5 MG TABLET PO PRN (13:06)
[2024-07-15] MEDS: OLANZapine 10 MG TABLET PO SCH (22:14)
[2024-07-15] MEDS: traZODone HCL 50 MG TABLET (FP) PO SCH (22:14)
[2024-07-17] MEDS: diazePAM 5 MG TABLET PO SCH (05:15)
[2024-07-18] MEDS: diazePAM 5 MG TABLET PO SCH (05:21)
[2024-07-19] MEDS: IBUPROFEN 400 MG TABLET (FP) PO PRN (01:45)
[2024-07-19] MEDS: diazePAM 5 MG TABLET PO ONE (05:02)
[2024-07-19 06:06] VITALS: BP 95/62; PULSE 64; RESP 16; TEMP 98
== END 2024-07-19 08:56 | disposition home or self-care (01) | DRG 773 ==
LOC: YASAS 10:58 → Y3N 12:18
PROVIDERS: ADMIT Allergy & Immunology; ATTEND Allergy & Immunology
PROC: HZ2ZZZZ Detoxification Services for Substance Abuse Treatment (ICD-10-PCS; principal; 2024-07-14)
DX: F10.230 Alcohol dependence with withdrawal, uncomplicated (principal); F11.20 Opioid dependence, uncomplicated; F14.20 Cocaine dependence, uncomplicated; F12.20 Cannabis dependence, uncomplicated; F32.A Depression, unspecified; I25.2 Old myocardial infarction; Z86.69 Personal history of other diseases of the nervous system and sense organs; Z59.01 Sheltered homelessness
CPT/HCPCS: 36415; 80053; 80305; 80307; 85027; 86780; 90656; 93005; 93010; G0008

== ENCOUNTER 2024-09-21 18:09 | Inpatient (IN) | payer OTHER ==
[2024-09-21 18:25] VITALS: BMI 23.8
[2024-09-21] MEDS ORDERED: guaiFENesin 600 MG TABLET.ER (FP) PO PRN (20:38)
[2024-09-21] MEDS ORDERED: LOPERAMIDE HCL 2 MG CAPSULE PO PRN (20:38)
[2024-09-21] MEDS ORDERED: POLYETHYLENE GLYCOL (HEALTHYLAX) 3350 17 GM PACKET PO PRN (20:38)
[2024-09-21] MEDS ORDERED: BENZOCAINE/MENTHOL (CHLORASEPTIC ) LOZENGE MM PRN (20:38)
[2024-09-21] MEDS ORDERED: DICYCLOMINE HCL 10 MG CAPSULE PO PRN (20:38)
[2024-09-21] MEDS ORDERED: MAG HYDROX/AL HYDROX/SIMETH 30 ML UNIT-DOSE CUP PO PRN (20:38)
[2024-09-21] MEDS ORDERED: BENZONATATE 200 MG CAPSULE PO PRN (20:38)
[2024-09-21] MEDS ORDERED: BISMUTH SUBSALICYLATE 524 MG/30 ML PO PRN (20:38)
[2024-09-21] MEDS ORDERED: NALOXONE (NARCAN) HCL 4 MG/0.1 ML SPRAY NS PRN (20:38)
[2024-09-21] MEDS ORDERED: MAGNESIUM HYDROX 2400MG/30ML ORAL SUSPENSION 30 ML CUP PO PRN (20:38)
[2024-09-21] MEDS ORDERED: IBUPROFEN 400 MG TABLET (FP) PO PRN (20:38)
[2024-09-21] MEDS: THIAMINE 100 MG TABLET PO SCH (22:36)
[2024-09-21] MEDS: IBUPROFEN 600 MG TABLET (FP) PO PRN (22:36)
[2024-09-21] MEDS: diazePAM 5 MG TABLET PO SCH (22:36)
[2024-09-21] MEDS: MELATONIN 5 MG TABLETS PO SCH (22:36)
[2024-09-22] MEDS: diazePAM 5 MG TABLET PO SCH (05:22)
[2024-09-22] MEDS: METHOCARBAMOL 500 MG TABLET PO PRN (05:30)
[2024-09-22] MEDS: diazePAM 5 MG TABLET PO PRN (09:21)
[2024-09-22] MEDS: PRENATAL VITAMINS W/ FOLIC ACID TABLET (FP) PO SCH (09:21)
[2024-09-22 10:58] LABS: HEMATOCRIT 41.8 % (40.1-51.0); HEMOGLOBIN 13.2 g/dL (13.7-17.5); MCHC 31.6 g/dl (32.3-36.5); MEAN CELL VOLUME 92.3 fl (79.0-92.2); MEAN PLT VOLUME 11.5 fl (9.4-12.4); PLATELET COUNT 212 x10^3/uL (163-337); RDW 15.7 % (12.2-16.1)
[2024-09-22 11:14] LABS: CHLORIDE 105 mmol/L (98-107); POTASSIUM 4.1 mmol/L (3.5-5.1); SODIUM 149 mmol/L (136-145)
[2024-09-22 11:53] LABS: ALBUMIN 3.5 g/dl (3.4-5.0); ANION GAP 17 mmol/L (4-13); BLOOD UREA NITROGEN 12.2 mg/dL (7-18); CALCIUM 9.1 mg/dL (8.5-10.1); CO2 27 mmol/L (21-32); GLUCOSE,RANDOM 123 mg/dL (74-106)
[2024-09-22 11:55] LABS: SGPT/ALT 81 U/L (13-61)
[2024-09-22 11:57] LABS: CREATININE 0.7 mg/dL (0.55-1.3); SGOT/AST 44 U/L (15-37); TOT PROT 6.2 g/dl (6.4-8.2)
[2024-09-22 11:59] LABS: ALK PHOS 89 U/L (45-117); BILIRUBIN,TOTAL 0.8 mg/dL (0.2-1)
[2024-09-22] MEDS: ONDANSETRON *ODT* 4 MG TABLET SL PRN (18:22)
[2024-09-22] MEDS: OLANZapine 7.5 MG TABLET PO SCH (22:11)
[2024-09-22] MEDS: traZODone HCL 100 MG TABLET (FP) PO SCH (22:11)
[2024-09-23] MEDS: diazePAM 5 MG TABLET PO SCH (05:31)
[2024-09-24] MEDS: diazePAM 5 MG TABLET PO ONE (07:29)
[2024-09-24] MEDS: OLANZapine 5 MG TABLET PO SCH (22:02)
[2024-09-25] MEDS: ACETAMINOPHEN 325 MG TABLET (FP) PO PRN (00:44)
[2024-09-25 06:18] VITALS: BP 101/60; PULSE 84; RESP 16; TEMP 98.1
== END 2024-09-25 09:12 | disposition home or self-care (01) | DRG 773 ==
LOC: YASAS 18:09 → Y3N 22:02
PROVIDERS: ADMIT Allergy & Immunology; ATTEND Allergy & Immunology
PROC: HZ2ZZZZ Detoxification Services for Substance Abuse Treatment (ICD-10-PCS; principal; 2024-09-21)
DX: F10.230 Alcohol dependence with withdrawal, uncomplicated (principal); F11.20 Opioid dependence, uncomplicated; F14.20 Cocaine dependence, uncomplicated; F13.20 Sedative, hypnotic or anxiolytic dependence, uncomplicated; F17.210 Nicotine dependence, cigarettes, uncomplicated; F31.9 Bipolar disorder, unspecified; Z59.01 Sheltered homelessness
CPT/HCPCS: 36415; 80053; 80305; 80307; 82140; 85027; 86780; 93005; 93010; Q0162